=== PATIENT | male | born 1970 | race Caucasian/White ===

== ENCOUNTER 2023-02-21 10:33 | Inpatient (IN) | payer BC ==
[~2023-02-21] VITALS: Ht 177.8 cm; Wt 101.0 kg
[~2023-02-21 10:33] MED LIST: AML5T PO; AMLO1TAB22 PO; ARIP5TAB36 PO; ASPI1TAB20 PO; ATOR-47 PO; ATOR80TA PO; BUPR300T28 PO; CAR125T OR; CARV12.544 PO; EMPA1TAB3 PO; INSLANTI SC; INSU100I4 SC; INSUINJ37 SC; LISI20TA56 PO; METF-370 PO; METF-929 PO; TICA90TA PO
[2023-02-21] MEDS ORDERED: SODIUM CHLORIDE 0.9% 1,000 ML IVB ONE (11:15)
[2023-02-21] MEDS ORDERED: MORPHINE SULFATE 4 MG/ML SYR/VIAL IV ONE (11:15)
[2023-02-21 11:42] LABS: Basophils # (auto) 0.1 10 ^3/uL (0-0.2); Basophils % (auto) 0.2 % (0.0-2.0); Eosinophils # (auto) 0 10 ^3/uL (0-0.8); Eosinophils % (auto) 0.1 % (0.0-7.0); Hematocrit 47.2 % (41.0-53.0); Hemoglobin 15.5 g/dL (13.5-17.5); Lymphocytes # (auto) 1.4 10 ^3/uL (0.4-5.4); Lymphocytes % (auto) 5.7 % (10.0-50.0); Mean Corpuscular Hemoglobin 31.7 pg (28.0-32.0); Mean Corpuscular Hgb Conc. 32.9 g/dL (32.0-36.0); Mean Corpuscular Volume 96.3 fL (80.0-100.0); Monocytes # (auto) 2.5 10 ^3/uL (0-1.3); Monocytes % (auto) 10.1 % (0.0-12.0); Neutrophils # (auto) 20.4 10 ^3/uL (1.6-8.6); Neutrophils % (auto) 83.9 % (37.0-80.0); Nucleated Red Blood Cells % 0.1 %; Red Cell Distribution Width 13.6 % (11.8-14.3); White Blood Cell 24.4 10^3/uL (4.4-10.8)
[2023-02-21 11:58] LABS: INR 1.39 (0.9-1.15); Partial Thromboplastin Time 29.1 sec (24.6-33.4)
[2023-02-21 12:16] LABS: Albumin 2.2 g/dL (3.4-5.0); Calcium 7.8 mg/dL (8.5-10.1); Magnesium 1.8 mg/dL (1.6-2.6); Potassium 4.3 mmol/L (3.5-5.1)
[2023-02-21 12:19] LABS: Lactic Acid w/Reflex 3.2 mmol/L (0.4-2.0)
[2023-02-21 12:21] LABS: BUN/Creatinine Ratio 19.4 (10.0-20.0); Bilirubin, Total 0.8 mg/dL (0.2-1.0); Total Protein 5.8 g/dL (6.4-8.2)
[2023-02-21] MEDS ORDERED: ASPirin 81 mg TAB PO ONE (12:45)
[2023-02-21] MEDS ORDERED: ONDANSETRON HCL 4 MG/2 ML VIAL IV ONE (12:45)
[2023-02-21] MEDS ORDERED: PIPERACILLIN-TAZOB 3.375GM 100 ML IV ONE (13:15)
[2023-02-21] MEDS ORDERED: PANTOPRAZOLE 40 MG/10 ML VIAL INJ IV ONE (13:45)
[2023-02-21] MEDS ORDERED: SODIUM CHLORIDE 0.9% 1,000 ML IV ONE (13:45)
[2023-02-21] MEDS ORDERED: KETOROLAC TROMETH 30 MG/ML 1ML VIAL IV ONE (13:45)
[2023-02-21] MEDS ORDERED: SODIUM CHLORIDE 0.9% 2,600 ML IV ONE (13:45)
[2023-02-21] MEDS ORDERED: ACETAMINOPHEN 325 MG TAB PO PRN ×2 (13:45)
[2023-02-21] MEDS ORDERED: DEXTROSE (50%) 50ML SYRG IV PRN (14:00)
[2023-02-21] MEDS ORDERED: cefTRIAXone 1GM/50ML D5W 50 ML IV ONE (15:00)
[2023-02-21] MEDS ORDERED: NITROGLYCERIN 0.4 MG SL TAB SL PRN (15:00)
[2023-02-21] MEDS ORDERED: MORPHINE SULFATE INJ 2 MG/ml SYRG IV PRN (15:00)
[2023-02-21] MEDS: InsuLIN REG 1unit/0.01ml Soln (100units/ml) SC SCH ×2 (17:00→22:44)
[2023-02-21] MEDS: ACCU-CHEK COMFORT CURVE STRIP VI SCH ×2 (17:09→22:43)
[2023-02-21 18:03] LABS: Urine Bacteria NONE SEEN /hpf (None Seen); Urine Blood TRACE /uL (Negative); Urine Hyaline Cast FEW /lpf (0 - 2); Urine WBC 2 /hpf (0 - 3)
[2023-02-21] MEDS: HYDROcodone-ACET 5/325MG TAB PO PRN (21:04)
[2023-02-21] MEDS: PIPERACILLIN-TAZOB 3.375GM 100 ML IV SCH (22:43)
[2023-02-21] MEDS: ATORVASTATIN 20 MG TAB PO SCH (22:46)
[2023-02-21] MEDS: TICAGRELOR 90 MG TAB PO SCH (22:46)
[2023-02-21] MEDS: buPROPion HCL 75 MG TAB PO SCH (22:46)
[2023-02-21] MEDS: CARVEDILOL 12.5 MG TAB PO SCH (22:47)
[2023-02-22] MEDS: HYDROcodone-ACET 5/325MG TAB PO PRN ×5 (02:02→20:14)
[2023-02-22] MEDS: PIPERACILLIN-TAZOB 3.375GM 100 ML IV SCH ×3 (05:54→22:40)
[2023-02-22] MEDS: ACCU-CHEK COMFORT CURVE STRIP VI SCH ×4 (07:25→22:00)
[2023-02-22] MEDS: InsuLIN REG 1unit/0.01ml Soln (100units/ml) SC SCH ×4 (07:26→22:57)
[2023-02-22 07:27] LABS: Albumin 1.6 g/dL (3.4-5.0); Potassium 4.5 mmol/L (3.5-5.1)
[2023-02-22 07:30] LABS: Hemoglobin 12.4 g/dL (13.5-17.5); Mean Corpuscular Hemoglobin 32.1 pg (28.0-32.0); Mean Corpuscular Hgb Conc. 33.5 g/dL (32.0-36.0); Mean Corpuscular Volume 95.8 fL (80.0-100.0); Red Blood Cells 3.86 10^6/uL (4.5-5.90); Red Cell Distribution Width 13.5 % (11.8-14.3); White Blood Cell 20.5 10^3/uL (4.4-10.8)
[2023-02-22 07:32] LABS: BUN/Creatinine Ratio 19.4 (10.0-20.0); Bilirubin, Total 1.1 mg/dL (0.2-1.0); Total Protein 5.3 g/dL (6.4-8.2)
[2023-02-22 07:55] LABS: Basophils % (manual) 0 (0.0-2.0); Blast Cells 0; Eosinophils % (manual) 0 (0-7); Myelocytes % 0; Promyelocytes % 0; Reactive Lymphocytes 0
[2023-02-22] MEDS ORDERED: SODIUM CHLORIDE 0.9% 500 ML IV ONE (08:00)
[2023-02-22] MEDS ORDERED: cefTRIAXone 1GM/50ML D5W 50 ML IV SCH (09:00)
[2023-02-22] MEDS: CARVEDILOL 12.5 MG TAB PO SCH (09:41)
[2023-02-22] MEDS: ASPirin 81 mg TAB PO SCH (09:56)
[2023-02-22] MEDS: PANTOPRAZOLE 40 MG/10 ML VIAL INJ IV SCH (09:56)
[2023-02-22] MEDS: buPROPion HCL 75 MG TAB PO SCH ×2 (09:56→22:41)
[2023-02-22] MEDS ORDERED: amLODIPine BESYLATE 5 MG TAB PO SCH (10:00)
[2023-02-22] MEDS: TICAGRELOR 90 MG TAB PO SCH ×2 (10:16→22:40)
[2023-02-22] MEDS: SODIUM CHLORIDE 0.9% 1,000 ML IV SCH ×2 (11:18→20:14)
[2023-02-22 12:25] LABS: Band Neutrophils % (manual) 3; Lymphocytes % (manual) 9 (10.0-50.0); Metamyelocytes % 2; Monocytes % (manual) 6 (0-12)
[2023-02-22] MEDS: MORPHINE SULFATE INJ 2 MG/ml SYRG IV PRN (17:05)
[2023-02-22] MEDS: ATORVASTATIN 20 MG TAB PO SCH (22:41)
[2023-02-23] VITALS (7 sets, daily range): BP systolic 101–125; BP diastolic 65–75
[2023-02-23] MEDS: HYDROcodone-ACET 5/325MG TAB PO PRN ×4 (00:30→22:49)
[2023-02-23] MEDS: SODIUM CHLORIDE 0.9% 1,000 ML IV SCH ×3 (03:31→19:15)
[2023-02-23] MEDS: MORPHINE SULFATE INJ 2 MG/ml SYRG IV PRN ×4 (03:53→18:14)
[2023-02-23] MEDS: PIPERACILLIN-TAZOB 3.375GM 100 ML IV SCH ×3 (06:01→22:31)
[2023-02-23] MEDS: ACCU-CHEK COMFORT CURVE STRIP VI SCH ×4 (06:11→22:54)
[2023-02-23] MEDS: InsuLIN REG 1unit/0.01ml Soln (100units/ml) SC SCH ×4 (06:13→23:07)
[2023-02-23 08:52] LABS: Hematocrit 34.2 % (41.0-53.0); Hemoglobin 11.2 g/dL (13.5-17.5); Mean Corpuscular Hemoglobin 31.5 pg (28.0-32.0); Mean Corpuscular Hgb Conc. 32.7 g/dL (32.0-36.0); Mean Corpuscular Volume 96.5 fL (80.0-100.0); Red Blood Cells 3.55 10^6/uL (4.5-5.90); Red Cell Distribution Width 13.9 % (11.8-14.3); White Blood Cell 24.3 10^3/uL (4.4-10.8)
[2023-02-23 08:55] LABS: Basophils % (manual) 0 (0.0-2.0); Blast Cells 0; Eosinophils % (manual) 0 (0-7); Metamyelocytes % 0; Myelocytes % 0; Promyelocytes % 0; Reactive Lymphocytes 0
[2023-02-23 09:15] LABS: Band Neutrophils % (manual) 10; Lymphocytes % (manual) 5 (10.0-50.0); Monocytes % (manual) 8 (0-12)
[2023-02-23] MEDS: ASPirin 81 mg TAB PO SCH (09:44)
[2023-02-23] MEDS: PANTOPRAZOLE 40 MG/10 ML VIAL INJ IV SCH (09:44)
[2023-02-23] MEDS: TICAGRELOR 90 MG TAB PO SCH ×2 (09:45→22:34)
[2023-02-23] MEDS: buPROPion HCL 75 MG TAB PO SCH ×2 (09:45→22:32)
[2023-02-23] MEDS: ATORVASTATIN 20 MG TAB PO SCH (22:35)
[2023-02-24] MEDS: MORPHINE SULFATE INJ 2 MG/ml SYRG IV PRN ×5 (01:55→21:51)
[2023-02-24] MEDS: SODIUM CHLORIDE 0.9% 1,000 ML IV SCH ×3 (03:15→21:53)
[2023-02-24] MEDS: HYDROcodone-ACET 5/325MG TAB PO PRN ×4 (03:39→17:38)
[2023-02-24 05:00] VITALS: BP 124/70
[2023-02-24] MEDS: PIPERACILLIN-TAZOB 3.375GM 100 ML IV SCH ×3 (05:33→21:51)
[2023-02-24] MEDS: ACCU-CHEK COMFORT CURVE STRIP VI SCH ×4 (05:43→21:53)
[2023-02-24] MEDS: InsuLIN REG 1unit/0.01ml Soln (100units/ml) SC SCH ×4 (05:56→21:49)
[2023-02-24] MEDS: ASPirin 81 mg TAB PO SCH (08:43)
[2023-02-24] MEDS: buPROPion HCL 75 MG TAB PO SCH ×2 (08:43→21:50)
[2023-02-24] MEDS: TICAGRELOR 90 MG TAB PO SCH ×2 (08:43→21:51)
[2023-02-24] MEDS: PANTOPRAZOLE 40 MG/10 ML VIAL INJ IV SCH (08:44)
[2023-02-24 09:13] VITALS: BP 111/65
[2023-02-24 12:43] VITALS: BP 128/73
[2023-02-24 16:52] VITALS: BP 135/73
[2023-02-24] MEDS ORDERED: ALBUTEROL SULF 2.5 MG/0.5ML(0.5%) NEB SOLN ONE (20:11)
[2023-02-24] MEDS ORDERED: MELATONIN 5 MG TAB PO ONE (20:15)
[2023-02-24] MEDS ORDERED: ALBUTEROL SULF 2.5 MG/0.5ML(0.5%) NEB SOLN NEB ONE (20:15)
[2023-02-24] MEDS: ATORVASTATIN 20 MG TAB PO SCH (21:49)
[2023-02-24 22:00] VITALS: BP 136/78
[2023-02-25] MEDS ORDERED: TEMAZEPAM 15 MG CAP PO ONE (02:30)
[2023-02-25] MEDS: HYDROcodone-ACET 5/325MG TAB PO PRN ×3 (02:41→20:13)
[2023-02-25] MEDS: SODIUM CHLORIDE 0.9% 1,000 ML IV SCH ×3 (03:15→20:07)
[2023-02-25 05:00] VITALS: BP 130/85
[2023-02-25] MEDS: PIPERACILLIN-TAZOB 3.375GM 100 ML IV SCH ×3 (06:22→21:43)
[2023-02-25] MEDS: InsuLIN REG 1unit/0.01ml Soln (100units/ml) SC SCH ×4 (06:23→21:41)
[2023-02-25] MEDS: MORPHINE SULFATE INJ 2 MG/ml SYRG IV PRN (06:27)
[2023-02-25] MEDS: ACCU-CHEK COMFORT CURVE STRIP VI SCH ×4 (07:18→21:49)
[2023-02-25 09:00] VITALS: BP 131/81
[2023-02-25] MEDS: ASPirin 81 mg TAB PO SCH (10:42)
[2023-02-25] MEDS: PANTOPRAZOLE 40 MG/10 ML VIAL INJ IV SCH (10:43)
[2023-02-25] MEDS: TICAGRELOR 90 MG TAB PO SCH ×2 (10:43→21:43)
[2023-02-25] MEDS ORDERED: ALBUTEROL SULF 2.5 MG/0.5ML(0.5%) NEB SOLN NEB PRN (11:00)
[2023-02-25] MEDS ORDERED: FUROSEMIDE 40 MG/4 ML VIAL IV ONE (11:00)
[2023-02-25] MEDS ORDERED: IPRATROPIUM BROM 0.5 MG/2.5ML INH SOL NEB PRN (11:00)
[2023-02-25] MEDS: buPROPion HCL 75 MG TAB PO SCH ×2 (12:25→21:42)
[2023-02-25] MEDS: ALPRAZolam 0.5 MG TAB PO PRN ×2 (12:40→21:42)
[2023-02-25 12:51] VITALS: BP 138/83
[2023-02-25 16:41] VITALS: BP 155/96
[2023-02-25] MEDS: ATORVASTATIN 20 MG TAB PO SCH (21:42)
[2023-02-25 22:00] VITALS: BP 147/93
[2023-02-25 23:34] VITALS: BP 155/96
[2023-02-26] VITALS (7 sets, daily range): BP systolic 134–153; BP diastolic 79–100
[2023-02-26] MEDS: SODIUM CHLORIDE 0.9% 1,000 ML IV SCH ×3 (03:15→22:00)
[2023-02-26] MEDS: MORPHINE SULFATE INJ 2 MG/ml SYRG IV PRN ×2 (04:42→17:42)
[2023-02-26] MEDS: PIPERACILLIN-TAZOB 3.375GM 100 ML IV SCH ×3 (06:01→22:34)
[2023-02-26] MEDS: InsuLIN REG 1unit/0.01ml Soln (100units/ml) SC SCH ×4 (06:09→22:47)
[2023-02-26] MEDS: ACCU-CHEK COMFORT CURVE STRIP VI SCH ×4 (06:09→22:51)
[2023-02-26] MEDS: ALPRAZolam 0.5 MG TAB PO PRN (06:09)
[2023-02-26] MEDS: TICAGRELOR 90 MG TAB PO SCH ×2 (09:35→22:00)
[2023-02-26] MEDS: PANTOPRAZOLE 40 MG/10 ML VIAL INJ IV SCH (09:35)
[2023-02-26] MEDS: ASPirin 81 mg TAB PO SCH (09:36)
[2023-02-26] MEDS: buPROPion HCL 75 MG TAB PO SCH ×2 (09:36→22:00)
[2023-02-26] MEDS: HYDROcodone-ACET 5/325MG TAB PO PRN (09:37)
[2023-02-26] MEDS ORDERED: METOPROLOL TARTRATE 25 MG TAB PO ONE (18:45)
[2023-02-26] MEDS: ONDANSETRON HCL 4 MG/2 ML VIAL IV PRN (19:06)
[2023-02-26 19:35] LABS: Basophils # (auto) 0.1 10 ^3/uL (0-0.2); Basophils % (auto) 0.3 % (0.0-2.0); Eosinophils # (auto) 0.1 10 ^3/uL (0-0.8); Eosinophils % (auto) 0.4 % (0.0-7.0); Hematocrit 35.1 % (41.0-53.0); Hemoglobin 11.8 g/dL (13.5-17.5); Lymphocytes # (auto) 0.6 10 ^3/uL (0.4-5.4); Lymphocytes % (auto) 3.3 % (10.0-50.0); Mean Corpuscular Hemoglobin 32.2 pg (28.0-32.0); Mean Corpuscular Hgb Conc. 33.7 g/dL (32.0-36.0); Mean Corpuscular Volume 95.5 fL (80.0-100.0); Monocytes # (auto) 0.6 10 ^3/uL (0-1.3); Neutrophils # (auto) 18.1 10 ^3/uL (1.6-8.6); Red Blood Cells 3.68 10^6/uL (4.5-5.90); Red Cell Distribution Width 14.2 % (11.8-14.3); White Blood Cell 19.4 10^3/uL (4.4-10.8)
[2023-02-26 19:49] LABS: Albumin 1.3 g/dL (3.4-5.0); Calcium 7.6 mg/dL (8.5-10.1); Magnesium 1.8 mg/dL (1.6-2.6); Phosphorus 5.1 mg/dL (2.5-4.90); Potassium 3.4 mmol/L (3.5-5.1)
[2023-02-26 19:51] LABS: BUN/Creatinine Ratio 19.1 (10.0-20.0); Bilirubin, Total 1.6 mg/dL (0.2-1.0); Total Protein 6.4 g/dL (6.4-8.2)
[2023-02-26] MEDS: ATORVASTATIN 20 MG TAB PO SCH (22:00)
[2023-02-26] MEDS: METOPROLOL TARTRATE 25 MG TAB PO SCH (22:00)
[2023-02-27] MEDS: HYDROcodone-ACET 5/325MG TAB PO PRN (04:55)
[2023-02-27 05:09] VITALS: BP 134/81
[2023-02-27] MEDS: PIPERACILLIN-TAZOB 3.375GM 100 ML IV SCH ×3 (06:17→21:59)
[2023-02-27] MEDS: ACCU-CHEK COMFORT CURVE STRIP VI SCH ×4 (06:18→21:59)
[2023-02-27] MEDS: InsuLIN REG 1unit/0.01ml Soln (100units/ml) SC SCH ×4 (06:18→22:00)
[2023-02-27 06:29] LABS: Basophils # (auto) 0 10 ^3/uL (0-0.2); Basophils % (auto) 0.1 % (0.0-2.0); Eosinophils # (auto) 0.1 10 ^3/uL (0-0.8); Eosinophils % (auto) 0.5 % (0.0-7.0); Hematocrit 34.2 % (41.0-53.0); Hemoglobin 11.5 g/dL (13.5-17.5); Lymphocytes # (auto) 0.9 10 ^3/uL (0.4-5.4); Lymphocytes % (auto) 5.2 % (10.0-50.0); Mean Corpuscular Hgb Conc. 33.5 g/dL (32.0-36.0); Mean Corpuscular Volume 95.4 fL (80.0-100.0); Monocytes # (auto) 0.8 10 ^3/uL (0-1.3); Monocytes % (auto) 4.7 % (0.0-12.0); Neutrophils # (auto) 15.4 10 ^3/uL (1.6-8.6); Neutrophils % (auto) 89.5 % (37.0-80.0); Nucleated Red Blood Cells % 0.1 %; Red Blood Cells 3.59 10^6/uL (4.5-5.90); Red Cell Distribution Width 14.1 % (11.8-14.3); White Blood Cell 17.2 10^3/uL (4.4-10.8)
[2023-02-27 07:12] LABS: Potassium 3.4 mmol/L (3.5-5.1)
[2023-02-27 07:16] LABS: Calcium 7.8 mg/dL (8.5-10.1)
[2023-02-27] MEDS: ASPirin 81 mg TAB PO SCH (07:41)
[2023-02-27] MEDS: TICAGRELOR 90 MG TAB PO SCH ×2 (07:41→21:57)
[2023-02-27] MEDS: METOPROLOL TARTRATE 25 MG TAB PO SCH ×2 (07:42→21:58)
[2023-02-27] MEDS: buPROPion HCL 75 MG TAB PO SCH ×2 (07:42→21:58)
[2023-02-27] MEDS: SODIUM CHLORIDE 0.9% 1,000 ML IV SCH ×2 (08:00→18:17)
[2023-02-27 08:30] VITALS: BP 137/91
[2023-02-27] MEDS: PANTOPRAZOLE 40 MG/10 ML VIAL INJ IV SCH (08:57)
[2023-02-27 09:03] VITALS: BP 137/91
[2023-02-27] MEDS ORDERED: METOPROLOL TARTRATE 25 MG TAB PO SCH (10:00)
[2023-02-27 13:00] VITALS: BP 135/84
[2023-02-27] MEDS: HYDROmorphone HCL 2 MG/ML VL/or syr IV PRN ×2 (13:07→22:57)
[2023-02-27 17:21] VITALS: BP 126/77
[2023-02-27] MEDS: ATORVASTATIN 20 MG TAB PO SCH (21:57)
[2023-02-27 22:00] VITALS: BP_SYST 132; BP_SYST 149; BP_DIAS 82; BP_DIAS 92
[2023-02-28] MEDS: SODIUM CHLORIDE 0.9% 1,000 ML IV SCH ×2 (04:00→11:00)
[2023-02-28] MEDS: HYDROmorphone HCL 2 MG/ML VL/or syr IV PRN ×4 (04:02→19:57)
[2023-02-28 05:00] VITALS: BP 143/84
[2023-02-28] MEDS: PIPERACILLIN-TAZOB 3.375GM 100 ML IV SCH ×3 (06:13→21:10)
[2023-02-28] MEDS: ACCU-CHEK COMFORT CURVE STRIP VI SCH ×4 (06:13→21:10)
[2023-02-28] MEDS: InsuLIN REG 1unit/0.01ml Soln (100units/ml) SC SCH ×5 (06:28→21:24)
[2023-02-28] MEDS: TICAGRELOR 90 MG TAB PO SCH ×2 (08:00→21:21)
[2023-02-28 09:19] VITALS: BP 131/75
[2023-02-28] MEDS: ASPirin 81 mg TAB PO SCH (10:00)
[2023-02-28] MEDS: buPROPion HCL 75 MG TAB PO SCH ×2 (10:00→21:19)
[2023-02-28] MEDS: METOPROLOL TARTRATE 25 MG TAB PO SCH ×2 (10:00→21:19)
[2023-02-28] MEDS: PANTOPRAZOLE 40 MG/10 ML VIAL INJ IV SCH (10:02)
[2023-02-28 12:18] LABS: Basophils # (auto) 0 10 ^3/uL (0-0.2); Basophils % (auto) 0.2 % (0.0-2.0); Eosinophils # (auto) 0.1 10 ^3/uL (0-0.8); Eosinophils % (auto) 0.6 % (0.0-7.0); Hematocrit 33.1 % (41.0-53.0); Hemoglobin 11.2 g/dL (13.5-17.5); Lymphocytes # (auto) 0.8 10 ^3/uL (0.4-5.4); Lymphocytes % (auto) 7.7 % (10.0-50.0); Mean Corpuscular Hgb Conc. 33.9 g/dL (32.0-36.0); Mean Corpuscular Volume 94.6 fL (80.0-100.0); Monocytes # (auto) 0.8 10 ^3/uL (0-1.3); Monocytes % (auto) 7.9 % (0.0-12.0); Neutrophils # (auto) 8.3 10 ^3/uL (1.6-8.6); Neutrophils % (auto) 83.6 % (37.0-80.0); Nucleated Red Blood Cells % 0.1 %; Red Cell Distribution Width 14.2 % (11.8-14.3); White Blood Cell 9.9 10^3/uL (4.4-10.8)
[2023-02-28 12:24] LABS: BUN/Creatinine Ratio 23.5 (10.0-20.0); Calcium 7.7 mg/dL (8.5-10.1); Potassium 3.3 mmol/L (3.5-5.1)
[2023-02-28 13:02] VITALS: BP 129/75
[2023-02-28] MEDS: ONDANSETRON HCL 4 MG/2 ML VIAL IV PRN (15:19)
[2023-02-28 17:00] VITALS: BP 135/84
[2023-02-28 19:00] VITALS: BP 135/84
[2023-02-28] MEDS: ATORVASTATIN 20 MG TAB PO SCH (21:21)
[2023-02-28 22:00] VITALS: BP 121/74
[2023-03-01] MEDS: HYDROmorphone HCL 2 MG/ML VL/or syr IV PRN ×5 (00:49→22:19)
[2023-03-01] MEDS: SODIUM CHLORIDE 0.9% 1,000 ML IV SCH ×3 (03:06→22:20)
[2023-03-01 05:00] VITALS: BP 149/87
[2023-03-01] MEDS: PIPERACILLIN-TAZOB 3.375GM 100 ML IV SCH ×3 (05:01→22:13)
[2023-03-01] MEDS: ACCU-CHEK COMFORT CURVE STRIP VI SCH ×4 (06:01→22:19)
[2023-03-01] MEDS: InsuLIN REG 1unit/0.01ml Soln (100units/ml) SC SCH ×4 (06:06→22:12)
[2023-03-01 07:23] LABS: Basophils # (auto) 0.1 10 ^3/uL (0-0.2); Basophils % (auto) 0.5 % (0.0-2.0); Eosinophils # (auto) 0.1 10 ^3/uL (0-0.8); Eosinophils % (auto) 1.1 % (0.0-7.0); Hematocrit 34.4 % (41.0-53.0); Hemoglobin 11.4 g/dL (13.5-17.5); Lymphocytes # (auto) 0.8 10 ^3/uL (0.4-5.4); Mean Corpuscular Hemoglobin 32.3 pg (28.0-32.0); Mean Corpuscular Hgb Conc. 33.2 g/dL (32.0-36.0); Mean Corpuscular Volume 97.2 fL (80.0-100.0); Monocytes # (auto) 0.9 10 ^3/uL (0-1.3); Monocytes % (auto) 8.8 % (0.0-12.0); Neutrophils # (auto) 8.2 10 ^3/uL (1.6-8.6); Neutrophils % (auto) 81.6 % (37.0-80.0); Nucleated Red Blood Cells % 0.1 %; Red Blood Cells 3.54 10^6/uL (4.5-5.90)
[2023-03-01 07:36] LABS: Albumin 1.1 g/dL (3.4-5.0); BUN/Creatinine Ratio 24.9 (10.0-20.0); Calcium 8.3 mg/dL (8.5-10.1); Potassium 3.5 mmol/L (3.5-5.1)
[2023-03-01 07:37] LABS: INR 1.26 (0.9-1.15); Partial Thromboplastin Time 31.6 SEC (24.5-34.5)
[2023-03-01 07:39] LABS: Total Protein 6.5 g/dL (6.4-8.2)
[2023-03-01 09:00] VITALS: BP 144/84
[2023-03-01] MEDS ORDERED: LIDOCAINE 1% (LOCAL ANESTH.) PF 5ml SDV ID ONE (09:15)
[2023-03-01] MEDS: TICAGRELOR 90 MG TAB PO SCH ×2 (10:00→22:00)
[2023-03-01] MEDS: buPROPion HCL 75 MG TAB PO SCH ×2 (10:00→22:00)
[2023-03-01] MEDS: PANTOPRAZOLE 40 MG/10 ML VIAL INJ IV SCH (10:00)
[2023-03-01] MEDS: METOPROLOL TARTRATE 25 MG TAB PO SCH ×2 (10:00→22:00)
[2023-03-01] MEDS: SODIUM CHLOR 0.9% PF (SALINE LOCK) 10ML VIAL/SYR IV SCH ×2 (10:00→22:19)
[2023-03-01] MEDS: ASPirin 81 mg TAB PO SCH (10:00)
[2023-03-01] MEDS ORDERED: GASTROGRAFIN 120 ML SOL ONE (10:29)
[2023-03-01 13:00] VITALS: BP 169/91
[2023-03-01 17:00] VITALS: BP 147/85
[2023-03-01 22:00] VITALS: BP 145/83
[2023-03-01] MEDS: ATORVASTATIN 20 MG TAB PO SCH (22:00)
[2023-03-02] MEDS: HYDROmorphone HCL 2 MG/ML VL/or syr IV PRN ×5 (02:18→22:27)
[2023-03-02 05:00] VITALS: BP 168/92
[2023-03-02] MEDS: SODIUM CHLORIDE 0.9% 1,000 ML IV SCH ×2 (06:36→16:00)
[2023-03-02] MEDS: PIPERACILLIN-TAZOB 3.375GM 100 ML IV SCH ×3 (06:36→22:26)
[2023-03-02] MEDS: ACCU-CHEK COMFORT CURVE STRIP VI SCH ×4 (06:42→22:27)
[2023-03-02] MEDS: InsuLIN REG 1unit/0.01ml Soln (100units/ml) SC SCH ×4 (06:42→22:11)
[2023-03-02 09:00] VITALS: BP 153/77
[2023-03-02] MEDS: TICAGRELOR 90 MG TAB PO SCH ×2 (10:00→22:00)
[2023-03-02] MEDS ORDERED: TPN PER PHARMACY 0 ML IV SCH (10:30)
[2023-03-02] MEDS: ASPirin 81 mg TAB PO SCH (10:44)
[2023-03-02 10:45] LABS: Basophils # (auto) 0 10 ^3/uL (0-0.2); Basophils % (auto) 0.1 % (0.0-2.0); Eosinophils # (auto) 0 10 ^3/uL (0-0.8); Eosinophils % (auto) 0.3 % (0.0-7.0); Hematocrit 35.9 % (41.0-53.0); Hemoglobin 11.8 g/dL (13.5-17.5); Lymphocytes # (auto) 0.7 10 ^3/uL (0.4-5.4); Lymphocytes % (auto) 7.7 % (10.0-50.0); Mean Corpuscular Hemoglobin 31.5 pg (28.0-32.0); Mean Corpuscular Hgb Conc. 32.8 g/dL (32.0-36.0); Monocytes # (auto) 1.2 10 ^3/uL (0-1.3); Monocytes % (auto) 12.6 % (0.0-12.0); Neutrophils # (auto) 7.4 10 ^3/uL (1.6-8.6); Neutrophils % (auto) 79.3 % (37.0-80.0); Nucleated Red Blood Cells % 0.2 %; Red Blood Cells 3.74 10^6/uL (4.5-5.90); Red Cell Distribution Width 14.6 % (11.8-14.3); White Blood Cell 9.4 10^3/uL (4.4-10.8)
[2023-03-02] MEDS: METOPROLOL TARTRATE 25 MG TAB PO SCH ×2 (10:45→22:00)
[2023-03-02] MEDS: buPROPion HCL 75 MG TAB PO SCH ×2 (10:46→22:00)
[2023-03-02] MEDS: PANTOPRAZOLE 40 MG/10 ML VIAL INJ IV SCH (10:46)
[2023-03-02] MEDS: SODIUM CHLOR 0.9% PF (SALINE LOCK) 10ML VIAL/SYR IV SCH ×2 (10:47→22:27)
[2023-03-02 11:10] LABS: Albumin 1.1 g/dL (3.4-5.0); Calcium 8.1 mg/dL (8.5-10.1); Potassium 3.7 mmol/L (3.5-5.1)
[2023-03-02 11:13] LABS: BUN/Creatinine Ratio 27.7 (10.0-20.0); Bilirubin, Total 0.9 mg/dL (0.2-1.0); Total Protein 7.1 g/dL (6.4-8.2)
[2023-03-02 12:30] LABS: Magnesium 2.4 mg/dL (1.6-2.6); Phosphorus 4.2 mg/dL (2.5-4.90)
[2023-03-02 13:00] VITALS: BP 137/83
[2023-03-02 17:21] VITALS: BP 132/81
[2023-03-02] MEDS ORDERED: TPN PER PHARMACY IV NR ×7 (20:00)
[2023-03-02] MEDS: ATORVASTATIN 20 MG TAB PO SCH (22:00)
[2023-03-02 22:18] VITALS: BP 149/50
[2023-03-03] VITALS (30 sets, daily range): BP systolic 61–168; BP diastolic 38–93
[2023-03-03] MEDS: HYDROmorphone HCL 2 MG/ML VL/or syr IV PRN ×3 (02:27→09:52)
[2023-03-03] MEDS: LORazepam 2MG/ML-1ML VIAL IV PRN ×2 (05:36→13:54)
[2023-03-03] MEDS: InsuLIN REG 1unit/0.01ml Soln (100units/ml) SC SCH ×4 (06:39→23:10)
[2023-03-03 06:45] LABS: Basophils # (auto) 0 10 ^3/uL (0-0.2); Basophils % (auto) 0.1 % (0.0-2.0); Eosinophils # (auto) 0 10 ^3/uL (0-0.8); Eosinophils % (auto) 0.6 % (0.0-7.0); Hematocrit 32.6 % (41.0-53.0); Hemoglobin 10.8 g/dL (13.5-17.5); Lymphocytes # (auto) 0.9 10 ^3/uL (0.4-5.4); Lymphocytes % (auto) 11.4 % (10.0-50.0); Mean Corpuscular Hemoglobin 31.8 pg (28.0-32.0); Mean Corpuscular Volume 96.3 fL (80.0-100.0); Monocytes # (auto) 0.9 10 ^3/uL (0-1.3); Monocytes % (auto) 12.2 % (0.0-12.0); Neutrophils # (auto) 5.7 10 ^3/uL (1.6-8.6); Neutrophils % (auto) 75.7 % (37.0-80.0); Nucleated Red Blood Cells % 0.1 %; Red Blood Cells 3.39 10^6/uL (4.5-5.90); Red Cell Distribution Width 14.8 % (11.8-14.3); White Blood Cell 7.5 10^3/uL (4.4-10.8)
[2023-03-03] MEDS: PIPERACILLIN-TAZOB 3.375GM 100 ML IV SCH ×3 (06:52→22:21)
[2023-03-03] MEDS: ACCU-CHEK COMFORT CURVE STRIP VI SCH ×4 (06:52→23:09)
[2023-03-03] MEDS: SODIUM CHLORIDE 0.9% 1,000 ML IV SCH ×3 (06:52→22:36)
[2023-03-03 06:53] LABS: Albumin 1.2 g/dL (3.4-5.0); Calcium 7.7 mg/dL (8.5-10.1); Magnesium 2.3 mg/dL (1.6-2.6)
[2023-03-03 06:57] LABS: BUN/Creatinine Ratio 31.8 (10.0-20.0); Bilirubin, Total 0.8 mg/dL (0.2-1.0); Phosphorus 2.8 mg/dL (2.5-4.90); Total Protein 6.7 g/dL (6.4-8.2)
[2023-03-03 06:59] LABS: Potassium 2.9 mmol/L (3.5-5.1)
[2023-03-03] MEDS: PANTOPRAZOLE 40 MG/10 ML VIAL INJ IV SCH (09:53)
[2023-03-03] MEDS: buPROPion HCL 75 MG TAB PO SCH ×2 (09:53→22:18)
[2023-03-03] MEDS: ASPirin 81 mg TAB PO SCH (09:54)
[2023-03-03] MEDS: METOPROLOL TARTRATE 25 MG TAB PO SCH ×2 (09:54→22:20)
[2023-03-03] MEDS: TICAGRELOR 90 MG TAB PO SCH ×2 (10:00→22:00)
[2023-03-03] MEDS ORDERED: POTASSIUM CHL 20MEQ/100ML 100 ML IV ONE (10:15)
[2023-03-03] MEDS: SODIUM CHLOR 0.9% PF (SALINE LOCK) 10ML VIAL/SYR IV SCH ×2 (11:27→22:22)
[2023-03-03] MEDS ORDERED: POTASSIUM EFFERVESENT TAB 25 MEQ NG ONE (12:30)
[2023-03-03] MEDS ORDERED: BUPIVACAINE W/ EPINEPH 0.5% INJ 50ML MDV IJ ONE (13:39)
[2023-03-03] MEDS ORDERED: LIDOCAINE 2% JELLY 11ml (GLYDO) ONE (13:39)
[2023-03-03] MEDS ORDERED: SUCCINYLCHOLINE CHLORIDE 20 MG/ML 10ML VIAL IV ONE (13:39)
[2023-03-03] MEDS ORDERED: CALCIUM CHL(10%) 100MG/ML 10ML VIAL IV ONE (13:41)
[2023-03-03] MEDS ORDERED: ALBUMIN 5% 250 ML IV ONE ×2 (13:41→14:49)
[2023-03-03] MEDS ORDERED: NOREPINEPHRINE 8 MG/250ML KIT 0 ML IV ONE (13:50)
[2023-03-03] MEDS ORDERED: ceFAZolin 1GM/50ML 100 ML IV ONE (14:11)
[2023-03-03] MEDS ORDERED: fentaNYL CITRATE 100 MCG/2 ML VL ONE (14:12)
[2023-03-03] MEDS ORDERED: fentaNYL CITRATE 5 ML ONE (14:12)
[2023-03-03] MEDS ORDERED: MIDAZOLAM HCL 2MG/2ML 2ml VIAL (1mg/ml) ONE ×2 (14:12→16:03)
[2023-03-03] MEDS ORDERED: HYDROmorphone HCL 2 MG/ML VL/or syr ONE ×2 (14:12→15:41)
[2023-03-03] MEDS ORDERED: SODIUM CHLORIDE 0.9% 1,000 ML IV ONE (19:45)
[2023-03-03] MEDS ORDERED: TPN PER PHARMACY IV NR ×10 (20:00)
[2023-03-03 20:05] LABS: Basophils # (auto) 0 10 ^3/uL (0-0.2); Basophils % (auto) 0.7 % (0.0-2.0); Eosinophils # (auto) 0 10 ^3/uL (0-0.8); Eosinophils % (auto) 0.2 % (0.0-7.0); Hematocrit 31.5 % (41.0-53.0); Hemoglobin 10.2 g/dL (13.5-17.5); Lymphocytes # (auto) 0.4 10 ^3/uL (0.4-5.4); Lymphocytes % (auto) 7.2 % (10.0-50.0); Mean Corpuscular Hemoglobin 30.5 pg (28.0-32.0); Mean Corpuscular Hgb Conc. 32.4 g/dL (32.0-36.0); Mean Corpuscular Volume 94.2 fL (80.0-100.0); Monocytes # (auto) 0.5 10 ^3/uL (0-1.3); Monocytes % (auto) 7.9 % (0.0-12.0); Neutrophils # (auto) 5.1 10 ^3/uL (1.6-8.6); Red Blood Cells 3.34 10^6/uL (4.5-5.90); Red Cell Distribution Width 18.8 % (11.8-14.3); White Blood Cell 6.1 10^3/uL (4.4-10.8)
[2023-03-03] MEDS: ATORVASTATIN 20 MG TAB PO SCH (22:19)
[2023-03-03] MEDS: fentaNYL Drip 2500mCg/250mlNS 250 ML IV SCH (22:26)
[2023-03-03] MEDS: MIDAZOLAM DRIP 50 mg/50mL 50 ML IV SCH (22:28)
[2023-03-03] MEDS: NOREPINEPHRINE 8 MG/250ML KIT 250 ML IV SCH (22:42)
[2023-03-04] VITALS (110 sets, daily range): BP systolic 45–143; BP diastolic 36–84
[2023-03-04 04:10] LABS: Basophils # (auto) 0 10 ^3/uL (0-0.2); Basophils % (auto) 0.1 % (0.0-2.0); Eosinophils # (auto) 0 10 ^3/uL (0-0.8); Hemoglobin 8.1 g/dL (13.5-17.5); Mean Corpuscular Hgb Conc. 33.3 g/dL (32.0-36.0); Monocytes # (auto) 0.9 10 ^3/uL (0-1.3); Red Blood Cells 2.59 10^6/uL (4.5-5.90)
[2023-03-04 04:14] LABS: Hematocrit 24.3 % (41.0-53.0); Lymphocytes # (auto) 0.6 10 ^3/uL (0.4-5.4); Mean Corpuscular Hemoglobin 31.2 pg (28.0-32.0); Mean Corpuscular Volume 93.7 fL (80.0-100.0); Monocytes % (auto) 13.4 % (0.0-12.0); Neutrophils # (auto) 4.9 10 ^3/uL (1.6-8.6); Neutrophils % (auto) 77.5 % (37.0-80.0); Red Cell Distribution Width 19.1 % (11.8-14.3); White Blood Cell 6.3 10^3/uL (4.4-10.8)
[2023-03-04 04:19] LABS: Potassium 4.6 mmol/L (3.5-5.1)
[2023-03-04 04:26] LABS: Albumin 1.2 g/dL (3.4-5.0); BUN/Creatinine Ratio 25.4 (10.0-20.0); Bilirubin, Total 0.6 mg/dL (0.2-1.0); Calcium 7.1 mg/dL (8.5-10.1); Magnesium 2.2 mg/dL (1.6-2.6); Phosphorus 5.1 mg/dL (2.5-4.90); Total Protein 5.4 g/dL (6.4-8.2)
[2023-03-04] MEDS: SODIUM CHLORIDE 0.9% 1,000 ML IV SCH ×3 (04:33→21:59)
[2023-03-04] MEDS: PIPERACILLIN-TAZOB 3.375GM 100 ML IV SCH ×3 (05:08→21:52)
[2023-03-04] MEDS: InsuLIN REG 1unit/0.01ml Soln (100units/ml) SC SCH ×4 (05:08→23:29)
[2023-03-04] MEDS: ACCU-CHEK COMFORT CURVE STRIP VI SCH ×4 (05:10→23:27)
[2023-03-04] MEDS: MIDAZOLAM DRIP 50 mg/50mL 50 ML IV SCH ×3 (06:01→18:51)
[2023-03-04] MEDS: NOREPINEPHRINE 8 MG/250ML KIT 250 ML IV SCH ×2 (06:02→18:51)
[2023-03-04] MEDS ORDERED: FUROSEMIDE 20 MG/2 ML VIAL IV ONE (08:30)
[2023-03-04] MEDS ORDERED: LORazepam 2MG/ML-1ML VIAL IV PRN (08:30)
[2023-03-04] MEDS: PANTOPRAZOLE 40 MG/10 ML VIAL INJ IV SCH (09:28)
[2023-03-04] MEDS: SODIUM CHLOR 0.9% PF (SALINE LOCK) 10ML VIAL/SYR IV SCH ×2 (09:29→21:52)
[2023-03-04] MEDS: TICAGRELOR 90 MG TAB PO SCH ×2 (09:30→21:52)
[2023-03-04] MEDS: METOPROLOL TARTRATE 25 MG TAB PO SCH ×2 (10:00→21:52)
[2023-03-04] MEDS: ASPirin 81 mg TAB PO SCH (10:00)
[2023-03-04] MEDS: buPROPion HCL 75 MG TAB PO SCH ×2 (10:24→21:52)
[2023-03-04] MEDS ORDERED: INSULIN LANTUS (GLARGINE) 1 /0.01ml (100units/ml) SC ONE (12:45)
[2023-03-04] MEDS: PROPOFOL 100 ML IV SCH (12:48)
[2023-03-04 14:00] LABS: Urine Bacteria NONE SEEN /hpf (None Seen); Urine Blood TRACE /uL (Negative); Urine Mucus FEW (None Seen); Urine Specific Gravity 1.021 (1.001-1.035); Urine WBC 5 /hpf (0 - 3)
[2023-03-04 14:06] LABS: INR 1.22 (0.9-1.15); Partial Thromboplastin Time 26.4 SEC (24.5-34.5)
[2023-03-04 14:20] LABS: Protein, Urine 126.4 mg/dL (0.0-11.9)
[2023-03-04] MEDS: fentaNYL Drip 2500mCg/250mlNS 250 ML IV SCH (19:22)
[2023-03-04 19:27] LABS: Basophils # (auto) 0 10 ^3/uL (0-0.2); Basophils % (auto) 0.1 % (0.0-2.0); Eosinophils # (auto) 0 10 ^3/uL (0-0.8)
[2023-03-04 19:32] LABS: Hematocrit 21.4 % (41.0-53.0); Lymphocytes # (auto) 1.1 10 ^3/uL (0.4-5.4); Lymphocytes % (auto) 10.5 % (10.0-50.0); Mean Corpuscular Hemoglobin 31.2 pg (28.0-32.0); Mean Corpuscular Hgb Conc. 32.6 g/dL (32.0-36.0); Mean Corpuscular Volume 95.7 fL (80.0-100.0); Monocytes # (auto) 1.3 10 ^3/uL (0-1.3); Monocytes % (auto) 12.5 % (0.0-12.0); Neutrophils # (auto) 8.1 10 ^3/uL (1.6-8.6); Neutrophils % (auto) 76.9 % (37.0-80.0); Nucleated Red Blood Cells % 0.1 %; Red Blood Cells 2.24 10^6/uL (4.5-5.90); Red Cell Distribution Width 19.8 % (11.8-14.3); White Blood Cell 10.6 10^3/uL (4.4-10.8)
[2023-03-04] MEDS ORDERED: TPN PER PHARMACY IV NR ×8 (20:00)
[2023-03-04] MEDS: ATORVASTATIN 20 MG TAB PO SCH (21:52)
[2023-03-04] MEDS: INSULIN LANTUS (GLARGINE) 1 /0.01ml (100units/ml) SC SCH (22:43)
[2023-03-05] VITALS (117 sets, daily range): BP systolic 46–143; BP diastolic 31–88
[2023-03-05] MEDS: PROPOFOL 100 ML IV SCH ×2 (01:54→17:44)
[2023-03-05 03:32] LABS: Basophils # (auto) 0 10 ^3/uL (0-0.2); Eosinophils # (auto) 0 10 ^3/uL (0-0.8); Eosinophils % (auto) 0.1 % (0.0-7.0); Neutrophils # (auto) 8.4 10 ^3/uL (1.6-8.6); Nucleated Red Blood Cells % 0.1 %
[2023-03-05 03:35] LABS: Basophils % (auto) 0.1 % (0.0-2.0); Hematocrit 19.6 % (41.0-53.0); Lymphocytes # (auto) 1.2 10 ^3/uL (0.4-5.4); Lymphocytes % (auto) 10.8 % (10.0-50.0); Mean Corpuscular Hemoglobin 30.8 pg (28.0-32.0); Mean Corpuscular Hgb Conc. 33.5 g/dL (32.0-36.0); Mean Corpuscular Volume 91.9 fL (80.0-100.0); Monocytes # (auto) 1.5 10 ^3/uL (0-1.3); Monocytes % (auto) 13.6 % (0.0-12.0); Neutrophils % (auto) 75.4 % (37.0-80.0); Red Blood Cells 2.14 10^6/uL (4.5-5.90); Red Cell Distribution Width 17.9 % (11.8-14.3); White Blood Cell 11.1 10^3/uL (4.4-10.8)
[2023-03-05] MEDS: SODIUM CHLORIDE 0.9% 1,000 ML IV SCH ×2 (03:43→14:16)
[2023-03-05 03:47] LABS: BUN/Creatinine Ratio 26.4 (10.0-20.0); Calcium 6.6 mg/dL (8.5-10.1); Magnesium 1.7 mg/dL (1.6-2.6); Potassium 3.6 mmol/L (3.5-5.1)
[2023-03-05 03:51] LABS: Bilirubin, Total 0.4 mg/dL (0.2-1.0); Phosphorus 4.3 mg/dL (2.5-4.90); Total Protein 4.9 g/dL (6.4-8.2)
[2023-03-05 03:52] LABS: Hemoglobin 6.6 g/dL (13.5-17.5)
[2023-03-05] MEDS: ACCU-CHEK COMFORT CURVE STRIP VI SCH ×4 (05:28→23:35)
[2023-03-05] MEDS: InsuLIN REG 1unit/0.01ml Soln (100units/ml) SC SCH ×4 (05:29→23:35)
[2023-03-05] MEDS: ASPirin 81 mg TAB PO SCH (10:00)
[2023-03-05] MEDS: buPROPion HCL 75 MG TAB PO SCH ×2 (10:00→21:32)
[2023-03-05] MEDS: TICAGRELOR 90 MG TAB PO SCH ×2 (10:00→21:32)
[2023-03-05] MEDS: METOPROLOL TARTRATE 25 MG TAB PO SCH ×2 (10:00→21:32)
[2023-03-05] MEDS: PANTOPRAZOLE 40 MG/10 ML VIAL INJ IV SCH (10:02)
[2023-03-05] MEDS: SODIUM CHLOR 0.9% PF (SALINE LOCK) 10ML VIAL/SYR IV SCH ×2 (10:13→21:32)
[2023-03-05] MEDS: INSULIN LANTUS (GLARGINE) 1 /0.01ml (100units/ml) SC SCH ×2 (10:23→21:38)
[2023-03-05] MEDS: MIDAZOLAM DRIP 50 mg/50mL 50 ML IV SCH (11:04)
[2023-03-05] MEDS ORDERED: ASPirin 300 MG RECTAL SUPP PR SCH (13:52)
[2023-03-05] MEDS ORDERED: PIPERACILLIN-TAZOB 3.375GM 100 ML IV ONE (14:30)
[2023-03-05] MEDS: fentaNYL Drip 2500mCg/250mlNS 250 ML IV SCH (17:43)
[2023-03-05 17:53] LABS: Basophils # (auto) 0 10 ^3/uL (0-0.2); Basophils % (auto) 0.1 % (0.0-2.0); Eosinophils # (auto) 0 10 ^3/uL (0-0.8); Eosinophils % (auto) 0.4 % (0.0-7.0); Hematocrit 27.4 % (41.0-53.0); Lymphocytes # (auto) 1.3 10 ^3/uL (0.4-5.4); Lymphocytes % (auto) 12.6 % (10.0-50.0); Mean Corpuscular Hgb Conc. 32.8 g/dL (32.0-36.0); Mean Corpuscular Volume 91.4 fL (80.0-100.0); Monocytes # (auto) 1.5 10 ^3/uL (0-1.3); Monocytes % (auto) 14.7 % (0.0-12.0); Neutrophils # (auto) 7.4 10 ^3/uL (1.6-8.6); Neutrophils % (auto) 72.2 % (37.0-80.0); Nucleated Red Blood Cells % 0.1 %; Red Cell Distribution Width 18.4 % (11.8-14.3); White Blood Cell 10.3 10^3/uL (4.4-10.8)
[2023-03-05] MEDS ORDERED: BUMETANIDE 2.5mg/10ml (0.25 mg/ml) INJ IV ONE (18:45)
[2023-03-05] MEDS ORDERED: TPN PER PHARMACY IV NR ×8 (20:00)
[2023-03-05] MEDS: PIPERACILLIN-TAZOB 3.375GM 100 ML IV SCH (21:30)
[2023-03-05] MEDS: ATORVASTATIN 20 MG TAB PO SCH (21:32)
[2023-03-05] MEDS: NOREPINEPHRINE 8 MG/250ML KIT 250 ML IV SCH (22:00)
[2023-03-06] VITALS (107 sets, daily range): BP systolic 67–120; BP diastolic 48–73
[2023-03-06] MEDS: PROPOFOL 100 ML IV SCH (03:14)
[2023-03-06] MEDS: MIDAZOLAM DRIP 50 mg/50mL 50 ML IV SCH (03:14)
[2023-03-06 04:22] LABS: Calcium 6.9 mg/dL (8.5-10.1); Magnesium 1.7 mg/dL (1.6-2.6); Potassium 3.3 mmol/L (3.5-5.1)
[2023-03-06 04:24] LABS: BUN/Creatinine Ratio 31.4 (10.0-20.0)
[2023-03-06 04:36] LABS: Bilirubin, Total 0.4 mg/dL (0.2-1.0); Phosphorus 3.2 mg/dL (2.5-4.90); Total Protein 5.4 g/dL (6.4-8.2)
[2023-03-06 04:51] LABS: Basophils # (auto) 0 10 ^3/uL (0-0.2); Hematocrit 27.2 % (41.0-53.0); Monocytes # (auto) 1.4 10 ^3/uL (0-1.3)
[2023-03-06 04:59] LABS: Basophils % (auto) 0.2 % (0.0-2.0); Eosinophils # (auto) 0.2 10 ^3/uL (0-0.8); Eosinophils % (auto) 1.7 % (0.0-7.0); Hemoglobin 9.2 g/dL (13.5-17.5); Lymphocytes # (auto) 1.4 10 ^3/uL (0.4-5.4); Mean Corpuscular Hemoglobin 30.4 pg (28.0-32.0); Mean Corpuscular Hgb Conc. 33.7 g/dL (32.0-36.0); Mean Corpuscular Volume 90.1 fL (80.0-100.0); Neutrophils # (auto) 6.9 10 ^3/uL (1.6-8.6); Neutrophils % (auto) 70.1 % (37.0-80.0); Nucleated Red Blood Cells % 0.9 %; Red Blood Cells 3.02 10^6/uL (4.5-5.90); White Blood Cell 9.8 10^3/uL (4.4-10.8)
[2023-03-06] MEDS: ACCU-CHEK COMFORT CURVE STRIP VI SCH ×3 (05:17→17:54)
[2023-03-06] MEDS: InsuLIN REG 1unit/0.01ml Soln (100units/ml) SC SCH ×3 (05:17→17:54)
[2023-03-06] MEDS: PIPERACILLIN-TAZOB 3.375GM 100 ML IV SCH ×3 (05:18→21:49)
[2023-03-06] MEDS: POTASSIUM CHL 20MEQ/100ML 100 ML IV SCH ×2 (07:41→09:16)
[2023-03-06] MEDS: TICAGRELOR 90 MG TAB PO SCH ×2 (09:32→21:53)
[2023-03-06] MEDS: PANTOPRAZOLE 40 MG/10 ML VIAL INJ IV SCH (09:32)
[2023-03-06] MEDS: METOPROLOL TARTRATE 25 MG TAB PO SCH ×2 (09:32→21:53)
[2023-03-06] MEDS: SODIUM CHLOR 0.9% PF (SALINE LOCK) 10ML VIAL/SYR IV SCH ×2 (09:32→21:49)
[2023-03-06] MEDS: buPROPion HCL 75 MG TAB PO SCH ×2 (09:33→21:53)
[2023-03-06] MEDS: INSULIN LANTUS (GLARGINE) 1 /0.01ml (100units/ml) SC SCH ×2 (09:40→21:55)
[2023-03-06] MEDS: fentaNYL Drip 2500mCg/250mlNS 250 ML IV SCH (16:17)
[2023-03-06] MEDS ORDERED: POTASSIUM ACETATE IV NR ×16 (20:00)
[2023-03-06] MEDS ORDERED: [UNRECOGNIZED DRUG - OTHER] IV NR ×8 (20:00)
[2023-03-06] MEDS ORDERED: MAGNESIUM SULF IV NR ×16 (20:00)
[2023-03-06] MEDS ORDERED: [UNRECOGNIZED DRUG - OTHER] IV NR ×8 (20:00)
[2023-03-06] MEDS: NOREPINEPHRINE 8 MG/250ML KIT 250 ML IV SCH (21:49)
[2023-03-06] MEDS: ATORVASTATIN 20 MG TAB PO SCH (21:53)
[2023-03-07] VITALS (107 sets, daily range): BP systolic 52–167; BP diastolic 48–96
[2023-03-07] MEDS: ACCU-CHEK COMFORT CURVE STRIP VI SCH ×4 (00:10→18:09)
[2023-03-07] MEDS: PROPOFOL 100 ML IV SCH ×3 (02:45→23:02)
[2023-03-07 04:25] LABS: Basophils # (auto) 0 10 ^3/uL (0-0.2); Basophils % (auto) 0.1 % (0.0-2.0); Eosinophils # (auto) 0.2 10 ^3/uL (0-0.8); Eosinophils % (auto) 1.9 % (0.0-7.0); Hematocrit 26.7 % (41.0-53.0); Hemoglobin 8.9 g/dL (13.5-17.5); Lymphocytes # (auto) 1.6 10 ^3/uL (0.4-5.4); Lymphocytes % (auto) 14.8 % (10.0-50.0); Mean Corpuscular Hemoglobin 30.4 pg (28.0-32.0); Mean Corpuscular Hgb Conc. 33.3 g/dL (32.0-36.0); Mean Corpuscular Volume 91.3 fL (80.0-100.0); Monocytes # (auto) 1.4 10 ^3/uL (0-1.3); Monocytes % (auto) 12.6 % (0.0-12.0); Neutrophils # (auto) 7.6 10 ^3/uL (1.6-8.6); Neutrophils % (auto) 70.6 % (37.0-80.0); Nucleated Red Blood Cells % 0.5 %; Red Blood Cells 2.92 10^6/uL (4.5-5.90); Red Cell Distribution Width 18.2 % (11.8-14.3); White Blood Cell 10.8 10^3/uL (4.4-10.8)
[2023-03-07 04:38] LABS: Potassium 3.8 mmol/L (3.5-5.1)
[2023-03-07 04:44] LABS: BUN/Creatinine Ratio 34.4 (10.0-20.0); Magnesium 1.7 mg/dL (1.6-2.6)
[2023-03-07 04:46] LABS: Bilirubin, Total 0.5 mg/dL (0.2-1.0); Phosphorus 3.3 mg/dL (2.5-4.90); Total Protein 5.5 g/dL (6.4-8.2)
[2023-03-07] MEDS: PIPERACILLIN-TAZOB 3.375GM 100 ML IV SCH ×3 (05:32→21:42)
[2023-03-07] MEDS: InsuLIN REG 1unit/0.01ml Soln (100units/ml) SC SCH ×4 (05:32→18:00)
[2023-03-07 06:11] LABS: Albumin 0.9 g/dL (3.4-5.0)
[2023-03-07] MEDS: INSULIN LANTUS (GLARGINE) 1 /0.01ml (100units/ml) SC SCH (10:00)
[2023-03-07] MEDS: buPROPion HCL 75 MG TAB PO SCH ×2 (10:00→21:43)
[2023-03-07] MEDS: METOPROLOL TARTRATE 25 MG TAB PO SCH ×2 (10:00→21:43)
[2023-03-07] MEDS: TICAGRELOR 90 MG TAB PO SCH ×2 (10:00→21:43)
[2023-03-07] MEDS: PANTOPRAZOLE 40 MG/10 ML VIAL INJ IV SCH (10:14)
[2023-03-07] MEDS: SODIUM CHLOR 0.9% PF (SALINE LOCK) 10ML VIAL/SYR IV SCH ×2 (10:14→21:43)
[2023-03-07] MEDS: DEXTROSE (50%) 50ML SYRG IV SCH ×2 (11:40→18:09)
[2023-03-07] MEDS: fentaNYL Drip 2500mCg/250mlNS 250 ML IV SCH (16:55)
[2023-03-07] MEDS: MIDAZOLAM DRIP 50 mg/50mL 50 ML IV SCH (19:15)
[2023-03-07] MEDS ORDERED: POTASSIUM ACETATE IV NR ×7 (20:00)
[2023-03-07] MEDS ORDERED: [UNRECOGNIZED DRUG - OTHER] IV NR ×7 (20:00)
[2023-03-07] MEDS ORDERED: MAGNESIUM SULF IV NR ×7 (20:00)
[2023-03-07] MEDS: D5W 5% 1,000 ML IV SCH (21:03)
[2023-03-07] MEDS: NOREPINEPHRINE 8 MG/250ML KIT 250 ML IV SCH (21:42)
[2023-03-07] MEDS: ATORVASTATIN 20 MG TAB PO SCH (21:43)
[2023-03-08] VITALS (105 sets, daily range): BP systolic 58–136; BP diastolic 39–98
[2023-03-08] MEDS: ACCU-CHEK COMFORT CURVE STRIP VI SCH ×4 (00:20→17:59)
[2023-03-08] MEDS: PROPOFOL 100 ML IV SCH ×3 (03:27→12:05)
[2023-03-08 04:18] LABS: Basophils # (auto) 0 10 ^3/uL (0-0.2); Basophils % (auto) 0.3 % (0.0-2.0); Eosinophils # (auto) 0.1 10 ^3/uL (0-0.8); Eosinophils % (auto) 0.7 % (0.0-7.0); Hematocrit 26.6 % (41.0-53.0); Hemoglobin 8.8 g/dL (13.5-17.5); Lymphocytes # (auto) 0.7 10 ^3/uL (0.4-5.4); Lymphocytes % (auto) 7.4 % (10.0-50.0); Mean Corpuscular Hgb Conc. 33.1 g/dL (32.0-36.0); Mean Corpuscular Volume 90.7 fL (80.0-100.0); Monocytes # (auto) 0.9 10 ^3/uL (0-1.3); Neutrophils # (auto) 7.5 10 ^3/uL (1.6-8.6); Neutrophils % (auto) 81.6 % (37.0-80.0); Nucleated Red Blood Cells % 0.1 %; Red Blood Cells 2.93 10^6/uL (4.5-5.90); Red Cell Distribution Width 17.7 % (11.8-14.3); White Blood Cell 9.2 10^3/uL (4.4-10.8)
[2023-03-08 04:36] LABS: Potassium 4.9 mmol/L (3.5-5.1)
[2023-03-08 04:42] LABS: BUN/Creatinine Ratio 32.5 (10.0-20.0); Bilirubin, Total 0.6 mg/dL (0.2-1.0); Calcium 7.4 mg/dL (8.5-10.1); Phosphorus 3.4 mg/dL (2.5-4.90); Total Protein 5.7 g/dL (6.4-8.2)
[2023-03-08 04:56] LABS: Albumin 0.8 g/dL (3.4-5.0)
[2023-03-08] MEDS: PIPERACILLIN-TAZOB 3.375GM 100 ML IV SCH ×3 (05:43→22:14)
[2023-03-08] MEDS: InsuLIN REG 1unit/0.01ml Soln (100units/ml) SC SCH ×4 (05:44→18:09)
[2023-03-08] MEDS: D5W 5% 1,000 ML IV SCH ×2 (05:45→06:38)
[2023-03-08] MEDS: MIDAZOLAM DRIP 50 mg/50mL 50 ML IV SCH (08:00)
[2023-03-08] MEDS: buPROPion HCL 75 MG TAB PO SCH ×2 (10:00→22:00)
[2023-03-08] MEDS: METOPROLOL TARTRATE 25 MG TAB PO SCH ×2 (10:00→22:00)
[2023-03-08] MEDS: TICAGRELOR 90 MG TAB PO SCH ×2 (10:00→22:00)
[2023-03-08] MEDS: SODIUM CHLOR 0.9% PF (SALINE LOCK) 10ML VIAL/SYR IV SCH ×3 (10:02→22:15)
[2023-03-08] MEDS: PANTOPRAZOLE 40 MG/10 ML VIAL INJ IV SCH (10:02)
[2023-03-08] MEDS ORDERED: ACETAMINOPHEN 650 MG RECT SUPP PR PRN (11:15)
[2023-03-08 13:13] LABS: INR 1.14 (0.9-1.15); Partial Thromboplastin Time 27.3 SEC (24.5-34.5)
[2023-03-08] MEDS ORDERED: HEPARIN DRIP/D5W 100UNITS/ML 250 ML IV SCH ×2 (13:35→13:45)
[2023-03-08] MEDS: fentaNYL Drip 2500mCg/250mlNS 250 ML IV SCH (16:06)
[2023-03-08] MEDS ORDERED: LIDOCAINE 1% (LOCAL ANESTH.) PF 5ml SDV ID ONE (18:00)
[2023-03-08] MEDS ORDERED: POTASSIUM ACETATE IV NR ×8 (20:00)
[2023-03-08] MEDS ORDERED: [UNRECOGNIZED DRUG - OTHER] IV NR ×8 (20:00)
[2023-03-08] MEDS ORDERED: MAGNESIUM SULF IV NR ×8 (20:00)
[2023-03-08 21:10] LABS: INR 1.26 (0.9-1.15); Partial Thromboplastin Time 34.9 SEC (24.5-34.5)
[2023-03-08] MEDS: HEPARIN DRIP/D5W 100UNITS/ML 250 ML IV SCH (21:30)
[2023-03-08] MEDS ORDERED: HEPARIN SODIUM (PORCINE) 5000 UNITS/ML 1ML VIAL IV ONE (21:30)
[2023-03-08] MEDS: ATORVASTATIN 20 MG TAB PO SCH (22:00)
[2023-03-08] MEDS: NOREPINEPHRINE 8 MG/250ML KIT 250 ML IV SCH (22:00)
[2023-03-09] VITALS (106 sets, daily range): BP systolic 79–168; BP diastolic 28–89
[2023-03-09] MEDS: ACCU-CHEK COMFORT CURVE STRIP VI SCH ×5 (00:03→23:49)
[2023-03-09] MEDS: InsuLIN REG 1unit/0.01ml Soln (100units/ml) SC SCH ×5 (00:05→23:54)
[2023-03-09] MEDS: NOREPINEPHRINE 8 MG/250ML KIT 250 ML IV SCH (00:35)
[2023-03-09] MEDS: PROPOFOL 100 ML IV SCH ×4 (00:36→23:27)
[2023-03-09] MEDS: MIDAZOLAM DRIP 50 mg/50mL 50 ML IV SCH ×2 (00:37→21:49)
[2023-03-09] MEDS: ALBUMIN 25% 100 ML IV SCH ×3 (01:26→17:32)
[2023-03-09] MEDS: D5W 5% 1,000 ML IV SCH ×3 (01:45→21:45)
[2023-03-09 03:53] LABS: Basophils # (auto) 0 10 ^3/uL (0-0.2); Basophils % (auto) 0.2 % (0.0-2.0); Eosinophils # (auto) 0.1 10 ^3/uL (0-0.8); Eosinophils % (auto) 1.1 % (0.0-7.0); Hematocrit 28.1 % (41.0-53.0); Hemoglobin 9.2 g/dL (13.5-17.5); Lymphocytes # (auto) 1.5 10 ^3/uL (0.4-5.4); Lymphocytes % (auto) 12.5 % (10.0-50.0); Mean Corpuscular Hemoglobin 29.9 pg (28.0-32.0); Mean Corpuscular Hgb Conc. 32.8 g/dL (32.0-36.0); Monocytes # (auto) 1.3 10 ^3/uL (0-1.3); Neutrophils # (auto) 8.8 10 ^3/uL (1.6-8.6); Neutrophils % (auto) 75.2 % (37.0-80.0); Nucleated Red Blood Cells % 0.2 %; Red Blood Cells 3.09 10^6/uL (4.5-5.90); White Blood Cell 11.6 10^3/uL (4.4-10.8)
[2023-03-09 04:10] LABS: INR 1.19 (0.9-1.15); Partial Thromboplastin Time 43.1 SEC (24.5-34.5)
[2023-03-09 04:13] LABS: Potassium 4.7 mmol/L (3.5-5.1)
[2023-03-09 04:20] LABS: Albumin 1.3 g/dL (3.4-5.0); BUN/Creatinine Ratio 31.4 (10.0-20.0); Bilirubin, Total 1.1 mg/dL (0.2-1.0); Calcium 7.3 mg/dL (8.5-10.1); Magnesium 1.8 mg/dL (1.6-2.6); Phosphorus 3.9 mg/dL (2.5-4.90); Total Protein 6.5 g/dL (6.4-8.2)
[2023-03-09] MEDS: PIPERACILLIN-TAZOB 3.375GM 100 ML IV SCH ×3 (06:24→21:49)
[2023-03-09] MEDS ORDERED: PANTOPRAZOLE 40mg/50ML NS AE 50 ML IV SCH (07:45)
[2023-03-09] MEDS: buPROPion HCL 75 MG TAB PO SCH ×2 (10:00→22:00)
[2023-03-09] MEDS: TICAGRELOR 90 MG TAB PO SCH ×2 (10:00→22:00)
[2023-03-09] MEDS: METOPROLOL TARTRATE 25 MG TAB PO SCH ×2 (10:00→22:00)
[2023-03-09] MEDS: PANTOPRAZOLE 40 MG/10 ML VIAL INJ IV SCH (10:48)
[2023-03-09] MEDS: SODIUM CHLOR 0.9% PF (SALINE LOCK) 10ML VIAL/SYR IV SCH ×4 (10:48→21:49)
[2023-03-09] MEDS: fentaNYL Drip 2500mCg/250mlNS 250 ML IV SCH (11:06)
[2023-03-09] MEDS: HEPARIN DRIP/D5W 100UNITS/ML 250 ML IV SCH (11:07)
[2023-03-09 12:28] LABS: INR 1.25 (0.9-1.15); Partial Thromboplastin Time 58.7 SEC (24.5-34.5)
[2023-03-09 17:32] LABS: INR 1.21 (0.9-1.15); Partial Thromboplastin Time 56.9 SEC (24.5-34.5)
[2023-03-09] MEDS ORDERED: SODIUM ACETATE IV NR ×8 (20:00)
[2023-03-09] MEDS ORDERED: MAGNESIUM SULF IV NR ×8 (20:00)
[2023-03-09] MEDS ORDERED: [UNRECOGNIZED DRUG - OTHER] IV NR ×8 (20:00)
[2023-03-09] MEDS ORDERED: POTASSIUM ACETATE IV NR ×8 (20:00)
[2023-03-09] MEDS: ATORVASTATIN 20 MG TAB PO SCH (22:00)
[2023-03-09 23:17] LABS: INR 1.24 (0.9-1.15)
[2023-03-09 23:33] LABS: Partial Thromboplastin Time 48.4 SEC (24.5-34.5)
[2023-03-10] VITALS (105 sets, daily range): BP systolic 81–208; BP diastolic 34–103
[2023-03-10] MEDS: HEPARIN DRIP/D5W 100UNITS/ML 250 ML IV SCH ×2 (03:35→19:16)
[2023-03-10 04:20] LABS: Basophils # (auto) 0.1 10 ^3/uL (0-0.2); Eosinophils # (auto) 0.1 10 ^3/uL (0-0.8); Hematocrit 23.3 % (41.0-53.0); Monocytes # (auto) 1.1 10 ^3/uL (0-1.3); Red Blood Cells 2.59 10^6/uL (4.5-5.90)
[2023-03-10 04:22] LABS: Basophils % (auto) 0.7 % (0.0-2.0); Eosinophils % (auto) 0.6 % (0.0-7.0); Lymphocytes # (auto) 1.4 10 ^3/uL (0.4-5.4); Lymphocytes % (auto) 9.8 % (10.0-50.0); Mean Corpuscular Hgb Conc. 34.4 g/dL (32.0-36.0); Mean Corpuscular Volume 89.9 fL (80.0-100.0); Monocytes % (auto) 7.8 % (0.0-12.0); Neutrophils # (auto) 11.3 10 ^3/uL (1.6-8.6); Neutrophils % (auto) 81.1 % (37.0-80.0); Red Cell Distribution Width 17.2 % (11.8-14.3)
[2023-03-10 04:53] LABS: Albumin 1.4 g/dL (3.4-5.0); BUN/Creatinine Ratio 35.9 (10.0-20.0); Calcium 6.7 mg/dL (8.5-10.1); Magnesium 1.8 mg/dL (1.6-2.6); Potassium 4.6 mmol/L (3.5-5.1)
[2023-03-10 04:55] LABS: Bilirubin, Total 1.6 mg/dL (0.2-1.0); Phosphorus 3.5 mg/dL (2.5-4.90); Total Protein 6.1 g/dL (6.4-8.2)
[2023-03-10] MEDS: PROPOFOL 100 ML IV SCH (05:39)
[2023-03-10] MEDS: PIPERACILLIN-TAZOB 3.375GM 100 ML IV SCH (05:39)
[2023-03-10] MEDS: ACCU-CHEK COMFORT CURVE STRIP VI SCH ×3 (05:40→18:08)
[2023-03-10] MEDS: InsuLIN REG 1unit/0.01ml Soln (100units/ml) SC SCH ×3 (05:44→18:14)
[2023-03-10] MEDS: fentaNYL Drip 2500mCg/250mlNS 250 ML IV SCH (06:53)
[2023-03-10 08:26] LABS: INR 1.22 (0.9-1.15)
[2023-03-10 08:42] LABS: Partial Thromboplastin Time 72.4 SEC (24.5-34.5)
[2023-03-10] MEDS: TICAGRELOR 90 MG TAB PO SCH ×2 (10:00→22:00)
[2023-03-10] MEDS: buPROPion HCL 75 MG TAB PO SCH ×2 (10:00→22:00)
[2023-03-10] MEDS: PANTOPRAZOLE 40 MG/10 ML VIAL INJ IV SCH (10:05)
[2023-03-10] MEDS: FUROSEMIDE 20 MG/2 ML VIAL IV SCH (10:05)
[2023-03-10] MEDS: ALBUMIN 25% 50 ML IV SCH ×2 (10:06→15:23)
[2023-03-10] MEDS: SODIUM CHLOR 0.9% PF (SALINE LOCK) 10ML VIAL/SYR IV SCH ×4 (10:26→22:17)
[2023-03-10] MEDS ORDERED: MICAFUNGIN SODIUM 100 MG in SODIUM CHL 0.9% 100 ML IV ONE (12:45)
[2023-03-10 14:26] LABS: INR 1.28 (0.9-1.15); Partial Thromboplastin Time 65.1 SEC (24.5-34.5)
[2023-03-10] MEDS ORDERED: SODIUM CHLORIDE IV NR ×11 (20:00)
[2023-03-10] MEDS ORDERED: [UNRECOGNIZED DRUG - OTHER] IV NR ×11 (20:00)
[2023-03-10] MEDS ORDERED: SODIUM PHOSPHATES IV NR ×11 (20:00)
[2023-03-10] MEDS ORDERED: POTASSIUM ACETATE IV NR ×11 (20:00)
[2023-03-10 21:45] LABS: INR 1.28 (0.9-1.15)
[2023-03-10 21:51] LABS: Partial Thromboplastin Time 85.3 SEC (24.5-34.5)
[2023-03-10] MEDS ORDERED: HEPARIN DRIP/D5W 100UNITS/ML 250 ML IV SCH (22:00)
[2023-03-10] MEDS: ATORVASTATIN 20 MG TAB PO SCH (22:00)
[2023-03-10] MEDS: NOREPINEPHRINE 8 MG/250ML KIT 250 ML IV SCH (22:00)
[2023-03-11] VITALS (78 sets, daily range): BP systolic 83–208; BP diastolic 27–87
[2023-03-11] MEDS: ACCU-CHEK COMFORT CURVE STRIP VI SCH ×4 (00:10→18:15)
[2023-03-11] MEDS: InsuLIN REG 1unit/0.01ml Soln (100units/ml) SC SCH ×4 (00:10→18:00)
[2023-03-11] MEDS: MIDAZOLAM DRIP 50 mg/50mL 50 ML IV SCH ×3 (01:47→12:44)
[2023-03-11] MEDS: PROPOFOL 100 ML IV SCH ×4 (01:47→20:03)
[2023-03-11] MEDS: ALBUMIN 25% 50 ML IV SCH (02:26)
[2023-03-11] MEDS: D5W 5% 1,000 ML IV SCH ×3 (03:45→23:40)
[2023-03-11 03:54] LABS: Basophils # (auto) 0.1 10 ^3/uL (0-0.2); Eosinophils # (auto) 0.1 10 ^3/uL (0-0.8); Hemoglobin 7.7 g/dL (13.5-17.5); Lymphocytes # (auto) 1.6 10 ^3/uL (0.4-5.4); Lymphocytes % (auto) 12.7 % (10.0-50.0); Monocytes # (auto) 1.5 10 ^3/uL (0-1.3); Neutrophils # (auto) 9.2 10 ^3/uL (1.6-8.6); Red Cell Distribution Width 17.6 % (11.8-14.3); White Blood Cell 12.4 10^3/uL (4.4-10.8)
[2023-03-11 03:56] LABS: Basophils % (auto) 0.4 % (0.0-2.0); Eosinophils % (auto) 0.5 % (0.0-7.0); Hematocrit 22.3 % (41.0-53.0); Mean Corpuscular Hemoglobin 30.7 pg (28.0-32.0); Mean Corpuscular Hgb Conc. 34.4 g/dL (32.0-36.0); Mean Corpuscular Volume 89.2 fL (80.0-100.0); Monocytes % (auto) 12.1 % (0.0-12.0); Neutrophils % (auto) 74.3 % (37.0-80.0)
[2023-03-11 04:09] LABS: Albumin 1.9 g/dL (3.4-5.0); Calcium 6.8 mg/dL (8.5-10.1); Magnesium 2.2 mg/dL (1.6-2.6); Potassium 4.3 mmol/L (3.5-5.1)
[2023-03-11 04:11] LABS: BUN/Creatinine Ratio 38.4 (10.0-20.0)
[2023-03-11 04:13] LABS: Bilirubin, Total 1.7 mg/dL (0.2-1.0); Phosphorus 3.9 mg/dL (2.5-4.90); Total Protein 6.7 g/dL (6.4-8.2)
[2023-03-11 04:55] LABS: INR 1.19 (0.9-1.15)
[2023-03-11 05:03] LABS: Partial Thromboplastin Time 54.9 SEC (24.5-34.5)
[2023-03-11 09:55] LABS: INR 1.26 (0.9-1.15)
[2023-03-11 09:57] LABS: Partial Thromboplastin Time 91.4 SEC (24.5-34.5)
[2023-03-11] MEDS: TICAGRELOR 90 MG TAB PO SCH ×2 (10:00→20:57)
[2023-03-11] MEDS: SODIUM CHLOR 0.9% PF (SALINE LOCK) 10ML VIAL/SYR IV SCH ×4 (10:00→20:57)
[2023-03-11] MEDS: PANTOPRAZOLE 40 MG/10 ML VIAL INJ IV SCH (10:34)
[2023-03-11] MEDS: FUROSEMIDE 20 MG/2 ML VIAL IV SCH (10:35)
[2023-03-11] MEDS: buPROPion HCL 75 MG TAB PO SCH ×2 (10:37→20:58)
[2023-03-11] MEDS: MICAFUNGIN SODIUM 100 MG in SODIUM CHL 0.9% 100 ML IV SCH (10:37)
[2023-03-11] MEDS: HEPARIN DRIP/D5W 100UNITS/ML 250 ML IV SCH (10:38)
[2023-03-11] MEDS ORDERED: PROPOFOL 10 MG/ML 20 ML IV ONE (16:15)
[2023-03-11] MEDS ORDERED: PROPOFOL 100 ML IV ONE (16:17)
[2023-03-11] MEDS: fentaNYL Drip 2500mCg/250mlNS 250 ML IV SCH (18:37)
[2023-03-11] MEDS ORDERED: SODIUM PHOSPHATES IV NR ×10 (20:00)
[2023-03-11] MEDS ORDERED: POTASSIUM CHLORIDE IV NR ×10 (20:00)
[2023-03-11] MEDS ORDERED: SODIUM CHLORIDE IV NR ×10 (20:00)
[2023-03-11] MEDS ORDERED: [UNRECOGNIZED DRUG - OTHER] IV NR ×10 (20:00)
[2023-03-11] MEDS: ATORVASTATIN 20 MG TAB PO SCH (20:57)
[2023-03-11] MEDS: NOREPINEPHRINE 8 MG/250ML KIT 250 ML IV SCH (21:40)
[2023-03-11] MEDS ORDERED: SODIUM FERR GLUC 62.5MG/5ML 125 MG in SODIUM CHL 0.9% 100 ML IV ONE (22:15)
[2023-03-12] VITALS (108 sets, daily range): BP systolic 75–188; BP diastolic 32–88
[2023-03-12] MEDS: ACCU-CHEK COMFORT CURVE STRIP VI SCH ×5 (00:05→23:41)
[2023-03-12] MEDS: InsuLIN REG 1unit/0.01ml Soln (100units/ml) SC SCH ×5 (00:05→23:42)
[2023-03-12] MEDS: NOREPINEPHRINE 8 MG/250ML KIT 250 ML IV SCH (01:09)
[2023-03-12] MEDS: PROPOFOL 100 ML IV SCH ×4 (03:01→19:29)
[2023-03-12 04:48] LABS: Hematocrit 22.6 % (41.0-53.0); Red Cell Distribution Width 17.4 % (11.8-14.3); White Blood Cell 11.8 10^3/uL (4.4-10.8)
[2023-03-12 04:51] LABS: Hemoglobin 7.5 g/dL (13.5-17.5); Mean Corpuscular Hemoglobin 29.5 pg (28.0-32.0); Mean Corpuscular Hgb Conc. 33.1 g/dL (32.0-36.0); Mean Corpuscular Volume 89.3 fL (80.0-100.0); Red Blood Cells 2.53 10^6/uL (4.5-5.90)
[2023-03-12 04:56] LABS: Basophils % (manual) 0 (0.0-2.0); Blast Cells 0; Eosinophils % (manual) 0 (0-7); Myelocytes % 0; Reactive Lymphocytes 0
[2023-03-12 05:00] LABS: Albumin 1.1 g/dL (3.4-5.0); Calcium 7.6 mg/dL (8.5-10.1); Magnesium 2.5 mg/dL (1.6-2.6)
[2023-03-12 05:06] LABS: BUN/Creatinine Ratio 43.9 (10.0-20.0); Phosphorus 4.3 mg/dL (2.5-4.90); Total Protein 6.5 g/dL (6.4-8.2)
[2023-03-12 06:55] LABS: Band Neutrophils % (manual) 13; Lymphocytes % (manual) 11 (10.0-50.0); Metamyelocytes % 2; Monocytes % (manual) 10 (0-12); Promyelocytes % 1
[2023-03-12] MEDS: HEPARIN DRIP/D5W 100UNITS/ML 250 ML IV SCH (08:05)
[2023-03-12] MEDS: SODIUM CHLOR 0.9% PF (SALINE LOCK) 10ML VIAL/SYR IV SCH ×5 (10:00→21:41)
[2023-03-12] MEDS: PANTOPRAZOLE 40 MG/10 ML VIAL INJ IV SCH (10:39)
[2023-03-12] MEDS: FUROSEMIDE 20 MG/2 ML VIAL IV SCH (10:39)
[2023-03-12] MEDS ORDERED: HEPARIN SODIUM (PORCINE) 5000 UNITS/ML 1ML VIAL IV ONE (11:00)
[2023-03-12] MEDS ORDERED: HEPARIN DRIP/D5W 100UNITS/ML 250 ML IV SCH ×2 (11:00→20:15)
[2023-03-12] MEDS: MICAFUNGIN SODIUM 100 MG in SODIUM CHL 0.9% 100 ML IV SCH (11:34)
[2023-03-12 11:52] LABS: INR 1.24 (0.9-1.15); Partial Thromboplastin Time 34.8 SEC (24.5-34.5)
[2023-03-12] MEDS: ALBUMIN 25% 100 ML IV SCH ×2 (13:03→19:48)
[2023-03-12] MEDS ORDERED: SODIUM CHLORIDE 0.9% 500 ML IV ONE (15:00)
[2023-03-12] MEDS ORDERED: LIDOCAINE 1% (LOCAL ANESTH.) PF 5ml SDV ID ONE (16:00)
[2023-03-12] MEDS: MIDAZOLAM DRIP 50 mg/50mL 50 ML IV SCH (19:28)
[2023-03-12 19:54] LABS: INR 1.24 (0.9-1.15); Partial Thromboplastin Time 43.5 SEC (24.5-34.5)
[2023-03-12] MEDS ORDERED: TPN PER PHARMACY IV NR ×7 (20:00)
[2023-03-12] MEDS: ATORVASTATIN 20 MG TAB PO SCH (21:41)
[2023-03-13] VITALS (108 sets, daily range): BP systolic 83–162; BP diastolic 38–93
[2023-03-13] MEDS: PROPOFOL 100 ML IV SCH ×4 (01:13→20:28)
[2023-03-13 02:19] LABS: INR 1.25 (0.9-1.15); Partial Thromboplastin Time 49.3 SEC (24.5-34.5)
[2023-03-13] MEDS: ALBUMIN 25% 100 ML IV SCH (03:16)
[2023-03-13 04:14] LABS: Hemoglobin 7.1 g/dL (13.5-17.5); White Blood Cell 12.7 10^3/uL (4.4-10.8)
[2023-03-13 04:16] LABS: Hematocrit 21.2 % (41.0-53.0); Mean Corpuscular Hemoglobin 29.6 pg (28.0-32.0); Mean Corpuscular Hgb Conc. 33.3 g/dL (32.0-36.0); Mean Corpuscular Volume 88.8 fL (80.0-100.0); Red Blood Cells 2.39 10^6/uL (4.5-5.90); Red Cell Distribution Width 17.9 % (11.8-14.3)
[2023-03-13 04:32] LABS: Potassium 3.9 mmol/L (3.5-5.1)
[2023-03-13 04:37] LABS: Albumin 1.6 g/dL (3.4-5.0); BUN/Creatinine Ratio 43.2 (10.0-20.0); Calcium 7.6 mg/dL (8.5-10.1)
[2023-03-13 04:57] LABS: Basophils % (manual) 0 (0.0-2.0); Blast Cells 0; Eosinophils % (manual) 0 (0-7); Promyelocytes % 0; Reactive Lymphocytes 0
[2023-03-13 05:08] LABS: Bilirubin, Total 2.6 mg/dL (0.2-1.0); Magnesium 2.6 mg/dL (1.6-2.6); Phosphorus 4.4 mg/dL (2.5-4.90); Total Protein 7.1 g/dL (6.4-8.2)
[2023-03-13] MEDS: fentaNYL Drip 2500mCg/250mlNS 250 ML IV SCH ×2 (05:15→23:11)
[2023-03-13] MEDS: InsuLIN REG 1unit/0.01ml Soln (100units/ml) SC SCH ×3 (05:32→18:22)
[2023-03-13] MEDS: ACCU-CHEK COMFORT CURVE STRIP VI SCH ×3 (05:33→18:21)
[2023-03-13 08:34] LABS: Band Neutrophils % (manual) 2; Lymphocytes % (manual) 11 (10.0-50.0); Metamyelocytes % 8; Monocytes % (manual) 6 (0-12); Myelocytes % 3
[2023-03-13 09:19] LABS: INR 1.31 (0.9-1.15)
[2023-03-13 09:20] LABS: Partial Thromboplastin Time 50.7 SEC (24.5-34.5)
[2023-03-13] MEDS: SODIUM CHLOR 0.9% PF (SALINE LOCK) 10ML VIAL/SYR IV SCH ×6 (10:00→21:55)
[2023-03-13] MEDS: PANTOPRAZOLE 40 MG/10 ML VIAL INJ IV SCH (10:45)
[2023-03-13] MEDS: FUROSEMIDE 20 MG/2 ML VIAL IV SCH (10:45)
[2023-03-13] MEDS: MICAFUNGIN SODIUM 100 MG in SODIUM CHL 0.9% 100 ML IV SCH (10:46)
[2023-03-13 11:15] LABS: Basophils # (auto) 0.1 10 ^3/uL (0-0.2); White Blood Cell 10.8 10^3/uL (4.4-10.8)
[2023-03-13 11:17] LABS: Eosinophils # (auto) 0.1 10 ^3/uL (0-0.8); Eosinophils % (auto) 0.8 % (0.0-7.0); Hematocrit 20.9 % (41.0-53.0); Lymphocytes % (auto) 18.2 % (10.0-50.0); Mean Corpuscular Hgb Conc. 31.4 g/dL (32.0-36.0); Mean Corpuscular Volume 108.4 fL (80.0-100.0); Monocytes # (auto) 1.5 10 ^3/uL (0-1.3); Monocytes % (auto) 13.9 % (0.0-12.0); Neutrophils # (auto) 7.1 10 ^3/uL (1.6-8.6); Neutrophils % (auto) 66.1 % (37.0-80.0); Nucleated Red Blood Cells % 0.1 %; Red Blood Cells 1.92 10^6/uL (4.5-5.90); Red Cell Distribution Width 20.2 % (11.8-14.3)
[2023-03-13 11:19] LABS: Hemoglobin 6.5 g/dL (13.5-17.5)
[2023-03-13] MEDS ORDERED: OMNIPAQUE 12mg/ml 500ml ORAL SOLUTION PO ONE (14:53)
[2023-03-13 15:45] LABS: INR 1.19 (0.9-1.15); Partial Thromboplastin Time 44.1 SEC (24.5-34.5)
[2023-03-13] MEDS: HEPARIN DRIP/D5W 100UNITS/ML 250 ML IV SCH (16:19)
[2023-03-13] MEDS ORDERED: SODIUM CHLORIDE 0.9% 500 ML IV ONE ×2 (16:45)
[2023-03-13] MEDS: MIDAZOLAM DRIP 50 mg/50mL 50 ML IV SCH (19:15)
[2023-03-13] MEDS ORDERED: TPN PER PHARMACY IV NR ×7 (20:00)
[2023-03-13] MEDS: NOREPINEPHRINE 8 MG/250ML KIT 250 ML IV SCH (21:52)
[2023-03-13] MEDS: ATORVASTATIN 20 MG TAB PO SCH (21:53)
[2023-03-13 23:30] LABS: INR 1.19 (0.9-1.15); Partial Thromboplastin Time 43.1 SEC (24.5-34.5)
[2023-03-14] VITALS (102 sets, daily range): BP systolic 99–208; BP diastolic -6–64
[2023-03-14] MEDS: ACCU-CHEK COMFORT CURVE STRIP VI SCH ×4 (00:31→18:21)
[2023-03-14] MEDS: InsuLIN REG 1unit/0.01ml Soln (100units/ml) SC SCH ×4 (00:34→18:45)
[2023-03-14] MEDS: MIDAZOLAM DRIP 50 mg/50mL 50 ML IV SCH ×5 (00:52→22:41)
[2023-03-14] MEDS: PROPOFOL 100 ML IV SCH ×5 (02:22→22:41)
[2023-03-14] MEDS: HEPARIN DRIP/D5W 100UNITS/ML 250 ML IV SCH ×3 (04:01→22:06)
[2023-03-14 04:12] LABS: Hemoglobin 7.6 g/dL (13.5-17.5); Red Cell Distribution Width 17.4 % (11.8-14.3)
[2023-03-14 04:14] LABS: Hematocrit 22.5 % (41.0-53.0); Mean Corpuscular Hemoglobin 29.7 pg (28.0-32.0); Mean Corpuscular Hgb Conc. 33.8 g/dL (32.0-36.0); Red Blood Cells 2.56 10^6/uL (4.5-5.90); White Blood Cell 12.9 10^3/uL (4.4-10.8)
[2023-03-14 04:25] LABS: Potassium 3.6 mmol/L (3.5-5.1)
[2023-03-14 04:27] LABS: INR 1.26 (0.9-1.15); Partial Thromboplastin Time 54.6 SEC (24.5-34.5)
[2023-03-14 04:37] LABS: Albumin 1.5 g/dL (3.4-5.0); BUN/Creatinine Ratio 45.7 (10.0-20.0); Bilirubin, Total 3.2 mg/dL (0.2-1.0); Calcium 7.4 mg/dL (8.5-10.1); Magnesium 2.3 mg/dL (1.6-2.6); Phosphorus 3.8 mg/dL (2.5-4.90); Total Protein 6.9 g/dL (6.4-8.2)
[2023-03-14 05:10] LABS: Basophils % (manual) 0 (0.0-2.0); Blast Cells 0; Eosinophils % (manual) 0 (0-7); Metamyelocytes % 0; Myelocytes % 0; Promyelocytes % 0; Reactive Lymphocytes 0
[2023-03-14 08:45] LABS: INR 1.43 (0.9-1.15)
[2023-03-14 08:48] LABS: Partial Thromboplastin Time 131.7 SEC (24.5-34.5)
[2023-03-14 09:10] LABS: Band Neutrophils % (manual) 12; Lymphocytes % (manual) 21 (10.0-50.0); Monocytes % (manual) 12 (0-12)
[2023-03-14] MEDS: SODIUM CHLOR 0.9% PF (SALINE LOCK) 10ML VIAL/SYR IV SCH ×2 (10:08→22:06)
[2023-03-14] MEDS: PANTOPRAZOLE 40 MG/10 ML VIAL INJ IV SCH (10:08)
[2023-03-14] MEDS: FUROSEMIDE 20 MG/2 ML VIAL IV SCH (10:08)
[2023-03-14] MEDS ORDERED: IOHEXOL 300 MG/ML 100ML BOTTLE IJ ONE (10:40)
[2023-03-14 10:41] LABS: INR 1.21 (0.9-1.15); Partial Thromboplastin Time 35.4 SEC (24.5-34.5)
[2023-03-14] MEDS: MICAFUNGIN SODIUM 100 MG in SODIUM CHL 0.9% 100 ML IV SCH (11:35)
[2023-03-14 12:33] LABS: INR 1.31 (0.9-1.15)
[2023-03-14 12:34] LABS: Partial Thromboplastin Time 41.3 SEC (24.5-34.5)
[2023-03-14] MEDS: ALBUMIN 25% 100 ML IV SCH ×2 (12:36→20:14)
[2023-03-14] MEDS: fentaNYL Drip 2500mCg/250mlNS 250 ML IV SCH (13:19)
[2023-03-14] MEDS ORDERED: FUROSEMIDE 20 MG/2 ML VIAL IV ONE (15:00)
[2023-03-14 19:55] LABS: INR 1.22 (0.9-1.15); Partial Thromboplastin Time 62.1 SEC (24.5-34.5)
[2023-03-14] MEDS ORDERED: TPN PER PHARMACY IV NR ×7 (20:00)
[2023-03-14] MEDS: NOREPINEPHRINE 8 MG/250ML KIT 250 ML IV SCH (22:00)
[2023-03-14] MEDS: ATORVASTATIN 20 MG TAB PO SCH (22:00)
[2023-03-15] VITALS (105 sets, daily range): BP systolic 73–149; BP diastolic 42–101
[2023-03-15] MEDS: ACCU-CHEK COMFORT CURVE STRIP VI SCH ×5 (00:29→23:43)
[2023-03-15 01:03] LABS: INR 1.29 (0.9-1.15)
[2023-03-15 01:06] LABS: Partial Thromboplastin Time 73.9 SEC (24.5-34.5)
[2023-03-15] MEDS: MIDAZOLAM DRIP 50 mg/50mL 50 ML IV SCH ×5 (03:15→20:15)
[2023-03-15] MEDS: fentaNYL Drip 2500mCg/250mlNS 250 ML IV SCH ×2 (03:17→13:14)
[2023-03-15] MEDS: PROPOFOL 100 ML IV SCH ×6 (04:14→23:55)
[2023-03-15] MEDS: ALBUMIN 25% 100 ML IV SCH (04:15)
[2023-03-15] MEDS: InsuLIN REG 1unit/0.01ml Soln (100units/ml) SC SCH ×5 (06:34→23:43)
[2023-03-15 06:38] LABS: Basophils # (auto) 0.1 10 ^3/uL (0-0.2); Eosinophils # (auto) 0.2 10 ^3/uL (0-0.8); Monocytes # (auto) 2.5 10 ^3/uL (0-1.3); Nucleated Red Blood Cells % 0.1 %; White Blood Cell 15.1 10^3/uL (4.4-10.8)
[2023-03-15 06:40] LABS: Calcium 7.3 mg/dL (8.5-10.1); Magnesium 2.2 mg/dL (1.6-2.6); Potassium 3.8 mmol/L (3.5-5.1)
[2023-03-15 06:42] LABS: Basophils % (auto) 0.7 % (0.0-2.0); Eosinophils % (auto) 1.1 % (0.0-7.0); Hematocrit 20.7 % (41.0-53.0); Lymphocytes % (auto) 13.4 % (10.0-50.0); Mean Corpuscular Hemoglobin 30.1 pg (28.0-32.0); Mean Corpuscular Hgb Conc. 33.9 g/dL (32.0-36.0); Mean Corpuscular Volume 88.7 fL (80.0-100.0); Monocytes % (auto) 16.3 % (0.0-12.0); Neutrophils # (auto) 10.3 10 ^3/uL (1.6-8.6); Neutrophils % (auto) 68.5 % (37.0-80.0); Red Blood Cells 2.33 10^6/uL (4.5-5.90); Red Cell Distribution Width 17.6 % (11.8-14.3)
[2023-03-15 06:43] LABS: BUN/Creatinine Ratio 40.4 (10.0-20.0); Bilirubin, Total 4.6 mg/dL (0.2-1.0); Phosphorus 3.8 mg/dL (2.5-4.90); Total Protein 7.2 g/dL (6.4-8.2)
[2023-03-15 06:50] LABS: INR 1.28 (0.9-1.15)
[2023-03-15 06:53] LABS: Partial Thromboplastin Time 76.2 SEC (24.5-34.5)
[2023-03-15] MEDS: SODIUM CHLOR 0.9% PF (SALINE LOCK) 10ML VIAL/SYR IV SCH ×2 (10:41→21:35)
[2023-03-15] MEDS: PANTOPRAZOLE 40 MG/10 ML VIAL INJ IV SCH (10:41)
[2023-03-15] MEDS: FUROSEMIDE 20 MG/2 ML VIAL IV SCH (10:41)
[2023-03-15] MEDS: MICAFUNGIN SODIUM 100 MG in SODIUM CHL 0.9% 100 ML IV SCH (10:53)
[2023-03-15] MEDS: NOREPINEPHRINE 8 MG/250ML KIT 250 ML IV SCH (11:45)
[2023-03-15 14:47] LABS: INR 1.36 (0.9-1.15)
[2023-03-15 14:54] LABS: Partial Thromboplastin Time 39.3 SEC (24.5-34.5)
[2023-03-15] MEDS: HEPARIN DRIP/D5W 100UNITS/ML 250 ML IV SCH (15:43)
[2023-03-15] MEDS: MEROPENEM 1GM IVPB 100 ML IV SCH ×2 (16:43→23:44)
[2023-03-15] MEDS ORDERED: FUROSEMIDE 20 MG/2 ML VIAL IV ONE (19:45)
[2023-03-15] MEDS ORDERED: POTASSIUM ACETATE IV NR ×10 (20:00)
[2023-03-15] MEDS ORDERED: SODIUM ACETATE IV NR ×10 (20:00)
[2023-03-15] MEDS ORDERED: [UNRECOGNIZED DRUG - OTHER] IV NR ×10 (20:00)
[2023-03-15] MEDS ORDERED: SODIUM CHLORIDE IV NR ×10 (20:00)
[2023-03-15 21:23] LABS: Hemoglobin 8.4 g/dL (13.5-17.5)
[2023-03-15 21:25] LABS: Hematocrit 25.7 % (41.0-53.0)
[2023-03-15] MEDS: ATORVASTATIN 20 MG TAB PO SCH (21:35)
[2023-03-15 21:49] LABS: INR 1.29 (0.9-1.15)
[2023-03-15 21:52] LABS: Partial Thromboplastin Time 75.8 SEC (24.5-34.5)
[2023-03-16] VITALS (49 sets, daily range): BP systolic 0–115; BP diastolic 0–76
[2023-03-16] MEDS: fentaNYL Drip 2500mCg/250mlNS 250 ML IV SCH (01:45)
[2023-03-16] MEDS: PROPOFOL 100 ML IV SCH ×2 (03:41→08:10)
[2023-03-16 04:09] LABS: Hematocrit 26.2 % (41.0-53.0); Hemoglobin 8.6 g/dL (13.5-17.5); Mean Corpuscular Hemoglobin 29.4 pg (28.0-32.0); Mean Corpuscular Hgb Conc. 32.7 g/dL (32.0-36.0); Mean Corpuscular Volume 89.8 fL (80.0-100.0); Red Blood Cells 2.92 10^6/uL (4.5-5.90); Red Cell Distribution Width 17.3 % (11.8-14.3)
[2023-03-16 04:15] LABS: Basophils % (manual) 0 (0.0-2.0); Blast Cells 0; Promyelocytes % 0; Reactive Lymphocytes 0
[2023-03-16 04:30] LABS: INR 1.35 (0.9-1.15)
[2023-03-16 04:32] LABS: Calcium 7.5 mg/dL (8.5-10.1); Potassium 4.6 mmol/L (3.5-5.1)
[2023-03-16 04:35] LABS: Albumin 1.7 g/dL (3.4-5.0); BUN/Creatinine Ratio 38.7 (10.0-20.0); Magnesium 2.1 mg/dL (1.6-2.6); Phosphorus 5.3 mg/dL (2.5-4.90)
[2023-03-16 04:37] LABS: Bilirubin, Total 5.4 mg/dL (0.2-1.0); Total Protein 7.5 g/dL (6.4-8.2)
[2023-03-16 04:51] LABS: Partial Thromboplastin Time 77.4 SEC (24.5-34.5)
[2023-03-16] MEDS: MIDAZOLAM DRIP 50 mg/50mL 50 ML IV SCH (05:00)
[2023-03-16 05:19] LABS: Band Neutrophils % (manual) 30; Eosinophils % (manual) 1 (0-7); Lymphocytes % (manual) 12 (10.0-50.0); Metamyelocytes % 1; Monocytes % (manual) 9 (0-12); Myelocytes % 10
[2023-03-16] MEDS: ACCU-CHEK COMFORT CURVE STRIP VI SCH ×2 (05:48→11:38)
[2023-03-16] MEDS: InsuLIN REG 1unit/0.01ml Soln (100units/ml) SC SCH ×2 (05:51→11:40)
[2023-03-16] MEDS: MEROPENEM 1GM IVPB 100 ML IV SCH (06:41)
[2023-03-16] MEDS: HEPARIN DRIP/D5W 100UNITS/ML 250 ML IV SCH (08:12)
[2023-03-16] MEDS: FUROSEMIDE 20 MG/2 ML VIAL IV SCH (10:07)
[2023-03-16] MEDS: PANTOPRAZOLE 40 MG/10 ML VIAL INJ IV SCH (10:07)
[2023-03-16] MEDS: MICAFUNGIN SODIUM 100 MG in SODIUM CHL 0.9% 100 ML IV SCH (10:08)
[2023-03-16] MEDS: SODIUM CHLOR 0.9% PF (SALINE LOCK) 10ML VIAL/SYR IV SCH (10:08)
[2023-03-16 13:04] LABS: INR 1.31 (0.9-1.15)
[2023-03-16 13:11] LABS: Partial Thromboplastin Time 83.1 SEC (24.5-34.5)
[2023-03-16] MEDS ORDERED: HEPARIN DRIP/D5W 100UNITS/ML 250 ML IV SCH (13:15)
[2023-03-16] MEDS ORDERED: MORPHINE SULFATE INJ 2 MG/ml SYRG IV PRN (13:15)
[2023-03-16] MEDS ORDERED: LORazepam 2MG/ML-1ML VIAL IV PRN (13:15)
[2023-03-16] MEDS ORDERED: SODIUM ACETATE IV NR ×9 (20:00)
[2023-03-16] MEDS ORDERED: SODIUM CHLORIDE IV NR ×9 (20:00)
[2023-03-16] MEDS ORDERED: CALCIUM GLUC IV NR ×9 (20:00)
[2023-03-16] MEDS ORDERED: [UNRECOGNIZED DRUG - OTHER] IV NR ×9 (20:00)
== END 2023-03-16 14:39 | DRG 853 ==
LOC: ER 10:33 → EDBD 10:33 → OVERFLOW 13:47 → TELE-WESTW 02-23 03:53 → ICU WEST 03-03 17:17
PROVIDERS: ADMIT Nurse Practitioner Family; ATTEND Internal Medicine Pulmonary Disease
PROC: 0D9670Z Drainage of Stomach with Drainage Device, Via Natural or Artificial Opening (ICD-10-PCS; 2023-02-26)
PROC: 02HV33Z Insertion of Infusion Device into Superior Vena Cava, Percutaneous Approach (ICD-10-PCS; 2023-03-01)
PROC: B548ZZA Ultrasonography of Superior Vena Cava, Guidance (ICD-10-PCS; 2023-03-01)
PROC: 0DBF0ZZ Excision of Right Large Intestine, Open Approach (ICD-10-PCS; 2023-03-03)
PROC: 30233N1 Transfusion of Nonautologous Red Blood Cells into Peripheral Vein, Percutaneous Approach (ICD-10-PCS; 2023-03-03)
PROC: 5A1955Z Respiratory Ventilation, Greater than 96 Consecutive Hours (ICD-10-PCS; 2023-03-03)
PROC: 0BH17EZ Insertion of Endotracheal Airway into Trachea, Via Natural or Artificial Opening (ICD-10-PCS; 2023-03-03)
PROC: 0DB80ZZ Excision of Small Intestine, Open Approach (ICD-10-PCS; principal; 2023-03-03 14:22)
PROC: 02HV33Z Insertion of Infusion Device into Superior Vena Cava, Percutaneous Approach (ICD-10-PCS; 2023-03-08)
PROC: B548ZZA Ultrasonography of Superior Vena Cava, Guidance (ICD-10-PCS; 2023-03-08)
PROC: 02HV33Z Insertion of Infusion Device into Superior Vena Cava, Percutaneous Approach (ICD-10-PCS; 2023-03-12)
PROC: B548ZZA Ultrasonography of Superior Vena Cava, Guidance (ICD-10-PCS; 2023-03-12)
DX: A41.9 Sepsis, unspecified organism (principal); G93.41 Metabolic encephalopathy; I21.4 Non-ST elevation (NSTEMI) myocardial infarction; N17.0 Acute kidney failure with tubular necrosis; J96.01 Acute respiratory failure with hypoxia; R65.21 Severe sepsis with septic shock; Z66 Do not resuscitate; K65.1 Peritoneal abscess; I50.43 Acute on chronic combined systolic (congestive) and diastolic (congestive) heart failure; K55.029 Acute infarction of small intestine, extent unspecified; K56.609 Unspecified intestinal obstruction, unspecified as to partial versus complete obstruction; D62 Acute posthemorrhagic anemia; B49 Unspecified mycosis; J98.11 Atelectasis; R18.8 Other ascites; I13.0 Hypertensive heart and chronic kidney disease with heart failure and stage 1 through stage 4 chronic kidney disease, or unspecified chronic kidney disease; E87.4 Mixed disorder of acid-base balance; G93.1 Anoxic brain damage, not elsewhere classified; K52.9 Noninfective gastroenteritis and colitis, unspecified; I25.10 Atherosclerotic heart disease of native coronary artery without angina pectoris; E11.22 Type 2 diabetes mellitus with diabetic chronic kidney disease; E11.65 Type 2 diabetes mellitus with hyperglycemia; N18.9 Chronic kidney disease, unspecified; I25.5 Ischemic cardiomyopathy; E87.6 Hypokalemia; Z95.5 Presence of coronary angioplasty implant and graft; I25.2 Old myocardial infarction; Z82.5 Family history of asthma and other chronic lower respiratory diseases; Z79.82 Long term (current) use of aspirin; Z79.02 Long term (current) use of antithrombotics/antiplatelets
CPT/HCPCS: 36415; 36569; 36600; 71045; 74018; 74176; 74177; 74250; 76700; 76705; 76775; 80048; 80053; 81001; 82010; 82553; 82570; 82805; 82947; 82962; 83605; 83690; 83735; 83880; 83930; 84100; 84132; 84156; 84300; 84478; 84484; 85007; 85014; 85018; 85025; 85027; 85379; 85384; 85610; 85730; 86256; 86671; 86850; 86900; 86901; 86920; 87040; 87070; 87077; 87081; 87086; 87186; 87205; 93005; 94002; 94003; 94640; 96361; 96365; 96375; C9113; G0378; J0330; J0690; J1815; J1885; J2185; J2248; J2250; J2405; J2543; J2704; J3480; J7060; J7131; P9047